=== PATIENT | male | born 1955 | race Caucasian/White ===

== ENCOUNTER → 2017-06-11 12:02 | Outpatient (CLI) | payer BC, SELFPAY ==
--- NOTE | 2017-06-11 12:14 | XR_ITS ---
XR knee LT 3V HISTORY: ITS.REASON: LEFT KNEE PAIN ORDERING PHYSICIAN: Araceli Benitez PATIENT AGE: 62 years COMPARISON: None FINDINGS: No fracture or dislocation. No lytic or blastic change. Normal mineralization. There is slight decrease in joint space medially with minimal osteophyte formation at the proximal tibia and proximal patella. IMPRESSION: Minimal osteoarthritic change
== END ==
PROVIDERS: PCP Family Medicine; Visit Provider Nurse Practitioner Family
DX: M25.562 Pain in left knee (principal)
CPT/HCPCS: 73562

== ENCOUNTER → 2017-09-03 13:06 | Outpatient (CLI) | payer BC, SELFPAY ==
--- NOTE | 2017-09-03 13:08 | MR_ITS ---
MR knee LT wo con HISTORY: Left knee pain, prior injury. Anterior pain and medial pain ITS.REASON: knee pain ORDERING PHYSICIAN: Filiberto Pisano MD PATIENT AGE: 62 years Comparison: 06/11/2017 TECHNIQUE: Standard multiplanar multiecho sequences are performed without contrast. FINDINGS: The cruciate ligaments, collateral ligaments, patellar tendon, and quadriceps tendon appear intact. Patellar cartilage is well preserved. There is some grade 1 increased signal intensity within the posterior margin of the medial meniscus. A nondisplaced horizontal tear involves the posterior horn of the lateral meniscus. There is a medium-sized knee joint effusion mainly in the suprapatellar region medially. There is increased T2 signal involving the medial femoral condyle and the medial tibial plateau consistent with bone bruise. Minor osteoarthritic changes involve the medial compartment with some medial protrusion of the medial meniscus and decrease in joint space. IMPRESSION: 1. Horizontal tear involves posterior horn of lateral meniscus. 2. Bone bruise of the medial femoral condyle and medial tibial plateau. 3. Mild osteoarthritis with medium sized knee joint effusion
== END ==
PROVIDERS: PCP Family Medicine; Visit Provider Orthopaedic Surgery
DX: S83.8X2A Sprain of other specified parts of left knee, initial encounter (principal)
CPT/HCPCS: 73721

== ENCOUNTER → 2017-10-06 10:09 | Outpatient (CLI) | payer BC, SELFPAY ==
--- NOTE | 2017-10-06 10:29 | XR_ITS ---
XR chest 2V HISTORY: ITS.REASON: DM2,PREOP ORDERING PHYSICIAN: Filiberto Pisano MD PATIENT AGE: 62 years COMPARISON: PA and lateral chest 10/01/2016 FINDINGS: There is mild generalized cardio megaly which is stable. The lung wetzel are well expanded and appear clear of infiltrate. There is no pleural fluid. IMPRESSION: Mild generalized cardio megaly, no acute chest pathology noted
[2017-10-06 10:43] LABS: Basophils # 0.1 K/mm3 (0-0.2); Basophils % 0.8 % (0.1-2.0); Eosinophils # 1.2 K/mm3 (0.0-0.4); Eosinophils % 12.7 % (0.1-12.0); Hemoglobin 14.6 g/dL (14.1-18.0); Lymphocytes # 2.6 K/mm3 (0.7-4.5); Lymphocytes % 27.4 K/mm3 (10-50); Mean Corpuscular HGB Conc 31.6 g/dL (31.8-35.4); Mean Corpuscular Hemoglobin 26.3 pg (27.0-31.2); Mean Corpuscular Volume 83.3 fl (80-94); Mean Platelet Volume 6.9 fl (7.4-10.4); Monocytes # 0.6 K/mm3 (0.1-1.0); Monocytes % 6.2 % (1.7-9.3); Neutrophils % 52.9 % (37.0-80.0); Platelet Count 325 K/mm3 (142-424); Red Blood Count 5.52 M/mm3 (4.60-6.20); Red Cell Distribution Width 13.7 % (11.5-17.5); White Blood Count 9.4 K/mm3 (4.8-10.8)
[2017-10-06 11:48] LABS: Anion Gap 12.3 mEq/L (5-15); Blood Urea Nitrogen 14 mg/dL (7-18); Calcium 9.1 mg/dL (8.5-10.1); Carbon Dioxide 29 mmol/L (21.0-32.0); Chloride 102 mmol/L (98-107); Creatinine,Serum 0.87 mg/dL (0.70-1.30); Estimated Glomerular Filt Rate 89 ml/min (>60); GFR (African American) 107 ML/MIN (>60); Glucose 100 mg/dL (74-106); Potassium 4.3 mmoL/L (3.5-5.1); Sodium 139 mmol/L (136-145)
== END ==
PROVIDERS: Visit Provider Orthopaedic Surgery
DX: Z01.818 Encounter for other preprocedural examination (principal); S83.282A Other tear of lateral meniscus, current injury, left knee, initial encounter
CPT/HCPCS: 36415; 71046; 80048; 85025; 93005

== ENCOUNTER → 2018-01-29 14:23 | Outpatient (CLI) | payer BC, SELFPAY ==
--- NOTE | 2018-01-29 14:26 | XR_ITS ---
XR knee LT 4V HISTORY: Knee pain ITS.REASON: 4 views weightbearing ORDERING PHYSICIAN: Evin Shukla MD PATIENT AGE: 62 years COMPARISON: 10/07/2017 FINDINGS: Status post subchondroplasty of the medial femoral condyle and medial tibial plateau with increased density of the structures. There is a lucency noted along the distal femur and one along the proximal aspect of the medial tibia centrally consistent with trocar insertion sites for subchondral plasty. No fracture or dislocation. Faint curvilinear density noted along the medial femoral condyle may be related to this extravasation of bone cement. There are moderate osteoarthritic changes of the medial compartment and mild osteoarthritis of the patellofemoral joint. The joint space medially appears more narrowed on today's exam. There is a suprapatellar effusion. IMPRESSION: Osteoarthritis of the medial compartment status post subchondral plasty is slight worsening of the osteoarthritis of the medial compartment and with a suprapatellar effusion
== END ==
PROVIDERS: PCP Family Medicine; Visit Provider Orthopaedic Surgery
DX: M25.562 Pain in left knee (principal)
CPT/HCPCS: 73564

== ENCOUNTER → 2018-05-14 14:09 | Outpatient (CLI) | payer BC, SELFPAY ==
[2018-05-14 14:14] LABS: Microscopic, Urine URINE MICROSCOPIC (MICROSCOPIC)
--- NOTE | 2018-05-14 14:38 | XR_ITS ---
XR knee LT 4V HISTORY: ITS.REASON: pre-op, lt KNEE OSTEOARTHRITIS ORDERING PHYSICIAN: Evin Shukla MD PATIENT AGE: 63 years COMPARISON: 01/29/2018 FINDINGS: Weight bearing views are performed. There are severe osteoarthritic changes of the medial compartment with loss of joint space, osteosclerosis, and osteophyte formation. There is increased density of the medial femoral condyle and the medial aspect of the proximal tibia with a lucency noted in both of these structures consistent with post subchondral blastic changes. There are mild osteoarthritic changes of the patellofemoral joint. There is a small suprapatellar effusion. There does appear to be some collapse of the medial femoral condyle at the subarticular region. IMPRESSION: Worsening osteoarthritis of the medial compartment status post prior subchondral plasty with some minimal collapse of the articular surface of the medial femoral condyle
--- NOTE | 2018-05-14 14:45 | XR_ITS ---
XR chest 2V HISTORY: ITS.REASON: DIABETIC, CAD ORDERING PHYSICIAN: Evin Shukla MD PATIENT AGE: 63 years COMPARISON: None FINDINGS: There is mild cardiomegaly. No evidence of CHF. No lobar consolidation or collapse. No acute bony anomalies. IMPRESSION: Cardiomegaly otherwise negative no acute finding
[2018-05-14 16:48] LABS: Appearance,Urine CLEAR (Clear); Bilirubin,Urine Negative (Negative); Blood, Urine TRACE-I (Negative); Color,Urine YELLOW (Yellow); Glucose,Urine (UA) Negative (Negative); Ketones,Urine Negative (Negative); Leukocyte Esterase,Urine Negative (Negative); Nitrate,Urine Negative (Negative); Protein,Urine Negative (Negative); Specific Gravity, Urine >= 1.030 (1.005-1.030); Urobilinogen,Urine 0.2 EU/dl (0.2)
[2018-05-14 17:01] LABS: Bacteria,Urine Trace /lpf; RBC,Urine Occasional #/hpf (0-3); WBC,Urine Occasional #/hpf (0-3)
== END ==
PROVIDERS: Visit Provider Orthopaedic Surgery
DX: Z01.818 Encounter for other preprocedural examination (principal); M17.12 Unilateral primary osteoarthritis, left knee
CPT/HCPCS: 36415; 71046; 73564; 81001; 86850

== ENCOUNTER → 2018-05-25 14:29 | Outpatient (CLI) | payer BC, SELFPAY ==
--- NOTE | 2018-05-25 14:35 | XR_ITS ---
XR hand RT min 3V HISTORY: Pain following injury ITS.REASON: FALL ORDERING PHYSICIAN: Mary Lutz MD PATIENT AGE: 63 years COMPARISON: None FINDINGS: No fracture or dislocation. No lytic or blastic change. There is normal mineralization.. There are mild hypertrophic changes at the interphalangeal joint of the first digit and the DIP joint of second and third digits. A small calcific density is present along the anterior and distal aspect of the proximal phalanx of the second digit. IMPRESSION: Degenerative change, no acute finding.
== END ==
PROVIDERS: PCP Family Medicine; Visit Provider Emergency Medicine
DX: M79.641 Pain in right hand (principal); W19.XXXA Unspecified fall, initial encounter
CPT/HCPCS: 73130

== ENCOUNTER 2018-05-27 06:54 | Inpatient (IN) ==
--- NOTE | 2018-05-27 08:32 | Progress Note ---
[facility] Anesthesia Checklist - Structural Data Admitted From: Home Planned Operative Procedure/s: l tka Consent for Planned Operative Procedure(s) Verified: Yes - Airway Assessment C-Spine Mobility Assessed: Yes TMJ Mobility Assessed: Yes Dentition: Good Dentition - Neurological Assessment Level of Consciousness: Awake, Alert, Appropriate - Anesthesia Plan Anesthesia Risk discussed: Yes Anesthesia Plan: Verified ASA Class: II Anesthesia Type: General - Preoperative Comments Pre-Operative Comments: discussed fem/sciatic block w pt incl risks and benefits, pt agrees to proceed w block [facility] History I have reviewed the patient's past medical history: Yes Medical History: Reports:: Anxiety, Diabetes Mellitus Type 2, Hyperlipidemia Denies:: Cancer, Diabetes Mellitus Type 1, Internal Pacemaker, MRSA, Seizures Have you ever received a pneumonia vaccine?: No Have you received a flu vaccine this season?: Yes Other Medical History: Denies: Blood Transfusion Reaction Laterality Cases: Left: Arthroscopy Knee Other Surgeries: Yes: Cardiac Catheterization, Hernia Repair. No: Pacemaker Amputation: No Fractures: No - *Social History Educational Level: Completed High School Smoking Status: Never smoker Alcohol Intake: never Substance Use Type: denies use Occupational Status: employed Housing: house Household Members: spouse Travel in the last 8 weeks: None - Psychiatric History Expresses thoughts of harming self/others: None Suicide Plan Description: No Plan Pschychiatric History:: Reports:: Anxiety Family Hx:: Cancer, Coronary Artery Disease, Heart Attack
--- NOTE | 2018-05-27 13:02 | Progress Note ---
[facility] Anesthesia Record Part II Discharge Time: 13:30 Destination: floor PACU nurse assessment reviewed?: Yes Patient Condition:: Good Anesthesia Complications:: None Swallowing reflex intact?: Yes Cyanosis?: No
--- NOTE | 2018-05-27 13:02 | Progress Note ---
[facility] Anesthesia Record Part I Intake, IV Amount: 2,500 Estimated blood loss (mL): 50 Urine output (mL): 450 Blood Pressure: 129/85 SaO2: 97 Pulse Rate: 107 Respiratory Rate: 12 Temperature: 97.4 F Patient is:: Awake, Stable Stable to PACU at:: 13:00
--- NOTE | 2018-05-27 13:39 | Operative Note ---
Date of procedure: 05/27/18 Pre-op Diagnosis:: Degenerative joint disease, left knee Post-op Diagnosis:: Same Procedure performed:: Cemented total knee arthroplasty, left knee Surgeon:: Evin Shukla MD Oil Changer(s):: Tiny Davis DIRECTOR OF MARKET INTELLIGENCE:: Joaquín Hernandez Anesthesia: GETA, regional Estimated blood loss (mL): 50 Clinical Note:: Patient is a 62-year-old male with symptomatic degenerative arthritis of the left knee with more significant changes over the medial compartment. He underwent an arthroscopic partial lateral meniscectomy and sub-chondroplasty procedure the medial femoral condyle and medial tibial plateau by Dr. Pisano in September 2017. He initially got some relief following his surgery but subsequently developed knee pain a few weeks to a couple of months later. He reports continued knee pain mainly over the anterior and medial aspects of the knee. He had intra-articular steroid and Visco supplementation injections without any significant or lasting relief. He rates his pain a 3 out of 10 at rest which gets worse with standing, walking and bending the knee. He also reports significant pain and difficulty going downstairs. He is having difficulty with his work and is not able to cope adequately with even light duties at work. He has developed a progressive varus deformity and flexion contracture with continued significant right knee pain. Having failed to respond satisfactorily to extensive nonsurgical management as well as arthroscopic surgery, patient is keen to proceed with a total knee arthroplasty for his left knee. The pain is advanced to the point that it is becoming a hazard for the patient with risk of falling and injuring himself. His activities of daily living as well as work are significantly impacted with the knee pain and stiffness. He also reports night pain and sleep disturbance. Given his knee pain and limitation of mobility, he is also at risk of falls and injuring himself. A total knee arthroplasty is indicated to relieve the pain, improve function, and reduce the risk of falls and to improve quality of life. Please refer to the office note for full details. Operative findings:: As noted during the preoperative evaluation, the knee joint has a fixed flexion of 10 and fixed varus deformity of 5. As seen on the preoperative x-rays, there are tricompartmental degenerative changes with the medial compartment showing more advanced changes with [id number]-wwgl appearance and osteophyte formation. The menisci and cruciate ligaments were degenerate. Scarring from previous arthroscopic surgery was noted. Changes over from the previous sub- chondroplasty procedure noted over the medial femoral condyle and medial tibial plateau. Distal aspect of the medial femoral condyle in particular showed changes suggestive of avascular necrosis and cyst formation. Bone quality is otherwise good. Operative note:: On the day of the surgery the patient and his family were met in the preoperative area and the patient was positively identified. I have reviewed the clinical and x-ray findings with the patient. I again discussed the diagnosis, natural history and management options in detail including both nonsurgical and surgical. Patient has end-stage degenerative arthritis of the LEFT knee and has failed to respond satisfactorily to nonsurgical and surgical management so far and has opted to proceed with a LEFT total knee arthroplasty. We again discussed the details of the procedure, risks and benefits and alternatives in detail. The complications discussed include but are not limited to infection, injury to nerves and blood vessels including injury to popliteal artery, injury to tendons and ligaments, bleeding, DVT and PE, fat embolism, intraoperative fracture, limb length inequality, patella fracture, patellofemoral instability, patellar clunk syndrome, quadriceps and patellar tendon rupture, implant failure, component loosening, periprosthetic femur and tibia fractures, stiffness(arthrofibrosis), limp, incomplete relief of pain, incomplete functional recovery, likely need for further surgery in future including revision and anesthetic complications including heart attack, stroke and even . We discussed how any of these events can be devastating. We have discussed nonsurgical alternatives as well. Patient understands and wishes to proceed with a LEFT total knee arthroplasty and I believe that the patient is fully informed as to the risks, benefits, and alternatives including nonsurgical alternatives. We also discussed the postoperative course including the rehab and physical therapy required. Patient lives with his family and is planning to go back home with home health after surgery. A physical examination was performed and documented. Consent form was reviewed and signed. The limb was appropriately marked and initialed by me. Patient understood the risks, agreed to proceed with surgery, [signed the consent form] and no guarantees or assurances were given or implied. The patient was then brought to the operating room and a general anesthesia was administered by the coding consultant. Prior to that patient also received femoral and sciatic nerve blocks in the pre-anesthetic area. The patient was then positioned supine on the operating table. All the bony prominences were appropriately padded. A well-padded tourniquet cuff was placed high over the left upper thigh. The left knee was prepped with isopropyl alcohol followed by chlorhexidine and draped in the usual sterile fashion. Prior to this, patient had used Hibiclens for a total of 5 days prior to the surgery and also used topical intranasal mupirocin. The entire operative team wore isolation suits and the Operating Room traffic was controlled. The skin incision was marked for a medial parapatellar approach to the knee joint. The entire operative site was sealed off with Ioban drape. A preprocedure timeout was performed as per hospital protocol. At the start of the procedure administration of 2 g of prophylactic IV Ancef was confirmed with the anesthetic team. Patient also received 1 g of IV tranexamic acid before starting the procedure and one more gram before wound closure to reduce the postoperative blood loss. The limb was exsanguinated with Esmarch bandage, the knee joint flexed beyond 90 and the tourniquet cuff was inflated to 325 mmHg. Please see the nursing records for total tourniquet time. I then made a midline incision utilizing a #10 scalpel blade. Electrocautery was used to seal off subcutaneous vessels. The extensor mechanism was exposed, marked and a curvilinear incision made for a medial parapatellar approach using the scalpel blade. The patella was everted carefully and most of the fat pad resected to allow sufficient visualization of the proximal tibia. The anterior cruciate ligament and the anterior aspects of both menisci were resected. An appropriate medial release was performed with the knife and Roger elevator. A step drill was used to open the intramedullary canal and the IM distal femoral cutting jig was placed. The jig was pinned into position and the intramedullary jocelyn removed. The distal cut was made at 5 degrees of valgus and the sizing jig placed. This sized best at a size 6 femur for the [employer] Journey II BCS TKA system. We then placed the 5-in-1 cutting block in position in 3 degrees of external rotation. 2 threaded pins were added for stabilizing the block and the juliana wing utilized to ensure notching of the femur would not occur. The anterior cuts were made followed by the posterior cut then the posterior chamfer and finally the anterior chamfer cuts in that order. Soft tissues were protected throughout this with careful retraction using the Z retractors. We checked for trueness of cuts and then moved on to the tibia. The tibial extra medullary guide was placed and aligned from the central aspect of the plateau between the spines down to the second metatarsal base. We pinned cutting block in position for minimal resection of the tibia from the medial side which was the lowermost side, checked the a lignment, protected the soft tissues with appropriate retractors and resected with the Cas saw. The resected tibial plateau articular surface was removed and sized it at a size 6. We ensured correctness of the cut and correct posterior slope. We then checked the extension and flexion gaps and found them to be equal and well balanced. We then elected to proceed with the box cut for a posterior stabilized femoral component. We placed the femoral trial appropriately and secured it to the bone with threaded pins. We placed the cutting jig for the box cut in the femur, drilled and then used the box osteotome to create the channel. We trialed the femur and the tibia with the appropriate trial components and a trial insert and ranged the knee to ensure full flexion and extension and checked for ligamentous stability. We then everted the patella and reamed for a 29 mm central pegged button. We had lateralized the femur and medialized the patella intentionally. We placed trial components and noted that a 11mm thick polyethylene tibial insert to fit best. This gave us a ligamentously stable knee and allowed full extension. We allowed this to be free-floating and then checked it and made sure it was in appropriate position in relation to the tibial tubercle. We also used tibial alignment jocelyn to check for satisfactory position of the base plate and markings were made with electrocautery on the proximal tibia. We then removed the trial components and positioned and pinned the base plate to the top of the tibia and punched the groove for the V shaped stem. We used a small trocar tipped pin to drill holes into the subchondral sclerotic bone of the medial tibia to augment cement fixation. We have noticed some bone necrosis and cyst formation over the distal aspect of the medial femoral condyle. I have curetted out the cysts and filled the cavity with cancellous bone graft. I then impacted the graft firmly into place. I also placed corticocancellous bone block in to the femoral entry point to reduce postoperative bleeding. We then copiously irrigated with the normal saline pulse lavage, and then dried the cut surfaces. We then cemented the tibial tray, the femoral component, and placed a 11 mm trial insert and brought the knee into extension. We then cemented the patella button. We allowed the cement to set and then inspected the knee joint and removed excess cement with an osteotome. We then placed the 11 millimeters definitive polyethylene tibial insert ensuring that the dovetails fit appropriately and that the polyethylene was down and seated into the tibial tray properly. The knee joint was put through range of motion and noted the patella to be tracking appropriately with no thumb technique. Knee range of flexion noted to be 0-150. The knee joint was then soaked with dilute Betadine (0.35 percent) solution for 3 minutes followed by suctioning of the solution and pulsatile lavage with the 1 L of normal saline. The tourniquet was deflated and hemostasis obtained with diathermy cautery. Another 1 gram of tranexamic acid was given intravenously by the coding consultant at the time of deflating the tourniquet. The knee joint was again thoroughly irrigated with pulse lavage and good hemostasis was obtained with diathermy cautery. At this stage, I have decided to proceed with placement of antibiotic beads as patient had previous knee surgery and also had intra- articular steroid injections. The antibiotic beads were prepared on the back table by mixing 5 cc of Osteo-boost with 1 g of vancomycin and 120 mg of gentamicin. We placed the beads around the knee joint as well as in the soft tissue in both deep and superficial layers. I then proceeding with wound closure. The capsule/extensor mechanism was closed with #1 Vicryl [id number] interrupted sutures ensuring a watertight closure. Next, the subcutaneous tissue was closed with 2-0 Vicryl interrupted sutures. The skin was closed with 4-0 Monocryl running suture, Dermabond and Steri-Strips. Sterile dressings were applied consisting of Silverlon dressing, 4 x 4, soft roll and secured in place with Hu wrap. The patient was then transferred from the operating table onto the bed. The tibialis posterior and dorsalis pedis pulses were noted 2+ with good capillary refill in the foot. The patient was then reversed from the anesthetic and transported to the postoperative recovery area in a stable condition. Patient tolerated the procedure well and there were no immediate complications. The swab, needle and instrument counts were correct according to the scrub team at the end of the procedure. Portable x-rays of the left knee were obtained in the recovery area which showed the components to be well fixed in a satisfactory alignment and position without any complications. The knee was placed in a knee immobilizer which should be continued when standing and walking, until patient regains full quadriceps control. Postoperatively, institute and continue standard precautions and physical therapy and edema management for a standard primary total knee arthroplasty starting on postoperative day 1. Patient can be mobilized full weightbearing as tolerated. Implants: [employer] Journey II BCS TKA system [employer] Journey nonporous tibial baseplate-left, size 6 [employer] bicruciate stabilized Journey II BCS Oxinium femoral component- left, size 6 [employer] Journey II BCS XLPE articular insert-left, size 5-6 x 11 mm [employer] Journey BCS Biconvex patellar component- 29mm [employer] Versabond AB bone cement Industry technology sales representative: Donald Silva ([employer]) Condition: stable Disposition: PACU Specimens:: None Complications:: None
--- NOTE | 2018-05-27 15:05 | Progress Note ---
Subjective Date: 05/27/18 Time: 14:45 Principal diagnosis: Status post total knee arthroplasty, left Interval history: Patient is status post left knee arthroplasty earlier today. Patient is lying down on the bed. He says the nerve blocks did not work well and is reporting some pain. No history of any nausea or vomiting. No history of any cough, chest pain, shortness of breath or palpitations. PN: Obj Ex Vital signs: Temp Pulse Resp BP Pulse Ox 98.2 F 106 H 20 137/83 99 05/27/18 14:01 05/27/18 14:01 05/27/18 14:01 05/27/18 14:01 05/27/18 14:01 Narrative: General appearance: alert, active, awake Cardiovascular: regular rate & rhythm, normal peripheral pulses Respiratory: No respiratory distress noted, speaks in full sentences ABD: soft and non tender Neuro: alert, awake, oriented x 3 On examination of the lower extremities the limb lengths are equal. On examination of the left knee the dressings are clean, dry and intact. Leg compartments are soft. Distal pulses are 2+. Capillary refill is brisk. He has numbness over her left foot and ankle. He is actively moving the ankle, foot and the toes. Postoperative check x-ray reviewed along with radiologist report. The x-rays show left total knee arthroplasty in satisfactory alignment. No complications noted. - Urinary Catheter Management Coude Cath placed during this visit: yes Urethral indwelling: Yes Reason for continuing: Surgical procedure Insertion date: 05/27/18 Insertion time: 08:50 Progress Note: A&P Assessment and Plan for All Diagnoses:: I have reviewed the clinical and operative findings and procedure performed with the patient and his . Advised him to keep the leg elevated, avoid placing pillow behind the knee; use knee immobilizer when weightbearing and walking until he regains full quadriceps control and is able to actively straight leg raise. Continue DVT prophylaxis and as needed pain medication. Care management consult regarding discharge planning. Patient is keen to go home with home health/physical therapy. Medical management as per Dr. Howell.
--- NOTE | 2018-05-27 15:23 | Pharmacy Consult Notes ---
[facility] Pharmacy VTE Monitoring - Patient Demographics Admission date: 05/27/18 Report Date: 05/27/18 Time: 15:21 Allergies/Adverse Reactions: Patient Allergies Penicillins [PENICILLINS] Allergy (Unknown, Verified 05/27/18 07:16) Height: 155.45 m Weight: 92.986 kg - VTE Risk Was VTE Risk Assessment Performed: Yes VTE Score: 7 VTE Risk Level: Moderate Risk - Prophylaxis Types of VTE Prophylaxis: IPCS Knee High (POST OP) Location of Applied Device: Right Leg
[2018-05-28 07:46] LABS: Basophils % 0.1 % (0.1-2.0); Hematocrit 30.6 % (42.0-52.0); Hemoglobin 9.9 g/dL (14.1-18.0); Lymphocytes # 1.2 K/mm3 (0.7-4.5); Lymphocytes % 10.1 % (10-50); Mean Corpuscular HGB Conc 32.4 g/dL (31.8-35.4); Mean Corpuscular Hemoglobin 26.6 pg (27.0-31.2); Mean Platelet Volume 6.6 fl (7.4-10.4); Monocytes # 0.9 K/mm3 (0.1-1.0); Monocytes % 7.9 % (1.7-9.3); Neutrophils # 9.8 K/mm3 (1.8-7.8); Neutrophils % 81.9 % (37.0-80.0); Platelet Count 275 K/mm3 (142-424); Red Blood Count 3.73 M/mm3 (4.60-6.20)
[2018-05-28 08:01] LABS: Anion Gap 10.9 mEq/L (5-15); Calcium 8.6 mg/dL (8.5-10.1); Potassium 3.9 mmoL/L (3.5-5.1)
--- NOTE | 2018-05-28 14:57 | Progress Note ---
Internal Medicine - PN: Subj Interval history: FAMILY MEDICINE CONSULT This 63-year-old white male patient is well-known to Dr. Howell. He is admitted by Dr. Shukla for replacement of his left knee. He has had difficulty with the Knee for at least at least 6 years. He has had previous steroid injections and hyaluronic acid injections. He is postop from surgery from yesterday morning. The patient's problem list includes hypothyroidism for which he takes levothyroxine, hyperlipidemia for which he takes rosuvastatin, and diabetes mellitus type 2 for which he takes metformin. He has had a cardiac catheterization in the past with the finding of a myocardial bridge. He does not have a stent. When the patient is seen today in consult he complains of chest fullness after eating. He is knee pain is being treated with opioids. His only listed allergy is to penicillin. Exam Vital signs and Labs for Last 24 Hours: Temp Pulse Resp BP Pulse Ox 98.2 F 89 20 122/77 96 05/28/18 11:32 05/28/18 11:32 05/28/18 13:45 05/28/18 11:32 05/28/18 11:32 Laboratory Results - last 24 hr 05/27/18 08:50: Urine Color Yellow, Urine Appearance Clear, Urine pH 6.0, Ur Specific [place] >= 1.030, Urine Protein Negative, Urine Glucose (UA) Negative, Urine Ketones Negative, Urine Blood Negative, Urine Nitrate Negative, Urine Bilirubin Negative, Urine Urobilinogen 0.2, Ur Leukocyte Esterase Negative 05/28/18 07:11: WBC 12.0 H, RBC 3.73 L, Hgb 9.9 L, Hct 30.6 L, MCV 82.0, MCH 26.6 L, MCHC 32.4, RDW 14.0, Plt Count 275, MPV 6.6 L, Neut % (Auto) 81.9 H, Lymph % (Auto) 10.1, [place] % (Auto) 7.9, Eos % (Auto) 0.0 L, Baso % (Auto) 0.1, Neut # (Auto) 9.8 H, Lymph # (Auto) 1.2, [place] # (Auto) 0.9, Eos # (Auto) 0.0, Baso # (Auto) 0.0 05/28/18 07:11: Sodium 138, Potassium 3.9, Chloride 105, Carbon Dioxide 26, An ion Gap 10.9, BUN 14, Creatinine 1.08, Estimated Creat Clear 91, Estimated GFR 69, Est GFR ( Amer) 83, Glucose 120 H, Calcium 8.6 I & O for Last 24 hours: Intake & Output 05/26/18 05/27/18 05/28/18 05/29/18 11:59 11:59 11:59 11:59 Intake Total 3220 / 3220 1909 Output Total 1400 / 1400 Balance 1820 / 1821909 Weight 208 lb 204 lb 15.984 oz - Constitutional no acute distress Comments: Does complain of some chest fullness. - *Routine HEENT Exam Head: Present: normocephalic Eye: Present: PERRL ENT: Present: mucous membranes moist - *Routine Neck Exam Absent: carotid bruit - Routine Chest/Breast/Axilla Exam Comments: Normal configuration - *Routine Respiratory Exam Present: CTA bilaterally - *Routine Cardiovascular Exam Present: RRR Comments: No ectopics - *Routine Abdominal Exam Present: soft. Absent: tenderness - *Routine Extremities Exam Comments: Flowtron device on the right leg. The left leg is bandaged. There is some edema of the lower leg ankle and foot. There is normal range of motion of the toes. Circulation appears normal and intact. The toes are warm. - *Routine Skin Exam Present: intact, dry - *Routine Neurological Exam Present: alert, oriented X3 Assessment and Plan (1) Degenerative joint disease of left knee Current visit: Yes Status: Acute Category: Medical Code(s): M17.12 - Unilateral primary osteoarthritis, left knee (2) Hypothyroidism Current visit: Yes Status: Acute Category: Medical Code(s): E03.9 - Hypothyroidism, unspecified (3) Myocardial bridge Current visit: Yes Status: Acute Category: Medical Code(s): Q24.5 - Malformation of coronary vessels (4) Hyperlipidemia Current visit: Yes Status: Acute Category: Medical Code(s): E78.5 - Hyperlipidemia, unspecified (5) Type 2 diabetes mellitus Current visit: Yes Status: Acute Category: Medical Code(s): E11.9 - Type 2 diabetes mellitus without complications (6) Chest pain Current visit: Yes Status: Acute Category: Medical Code(s): R07.9 - Chest pain, unspecified - Assessment and plan all Dx Assessment and Plan for all problems:: EKG and cardiac enzymes are ordered. Routine medications have already been ordered. I suggest cardiac telemetry. He seems very stable otherwise. I will follow him with you. Addendum: Sorry for the delay in this consult. I did not receive word of the consult until last night around 10 PM.
--- NOTE | 2018-05-28 15:08 | Progress Note ---
Subjective Date: 05/28/18 Time: 12:45 Principal diagnosis: Status post total knee arthroplasty, left Interval history: Patient is status post left knee arthroplasty, postoperative day 1. Patient is lying down on the bed. He says he is doing well and the pain is well controlled with medication. No history of any nausea or vomiting. No history of any cough, chest pain, shortness of breath or palpitations. Patient says he is eating and drinking well. PN: Obj Ex Vital signs: Temp Pulse Resp BP Pulse Ox 98.2 F 89 16 122/77 96 05/28/18 11:32 05/28/18 11:32 05/28/18 11:32 05/28/18 11:32 05/28/18 11:32 Narrative: Laboratory Results - last 24 hr 05/28/18 07:11: WBC 12.0 H, RBC 3.73 L, Hgb 9.9 L, Hct 30.6 L, MCV 82.0, MCH 26.6 L, MCHC 32.4, RDW 14.0, Plt Count 275, MPV 6.6 L, Neut % (Auto) 81.9 H, Lymph % (Auto) 10.1, [place] % (Auto) 7.9, Eos % (Auto) 0.0 L, Baso % (Auto) 0.1, Neut # (Auto) 9.8 H, Lymph # (Auto) 1.2, [place] # (Auto) 0.9, Eos # (Auto) 0.0, Baso # (Auto) 0.0 05/28/18 07:11: Sodium 138, Potassium 3.9, Chloride 105, Carbon Dioxide 26, Anion Gap 10.9, BUN 14, Creatinine 1.08, Estimated Creat Clear 91, Estimated GFR 69, Est GFR ( Amer) 83, Glucose 120 H, Calcium 8.6 Intake & Output 05/26/18 05/27/18 05/28/18 05/29/18 11:59 11:59 11:59 11:59 Intake Total 3220 / 3220 1550 / 1550 Output Total 1400 / 1400 Balance 1820 / 1820 1550 / 1550 Weight 208 lb 204 lb 15.984 oz Exam: General appearance: alert, active, awake Cardiovascular: regular rate & rhythm, normal peripheral pulses Respiratory: No respiratory distress noted, speaks in full sentences ABD: soft and non tender Neuro: alert, awake, oriented x 3 On examination of the lower extremities the limb lengths are equal. On examination of the right knee the dressings are clean, dry and intact. Soft tissue compartments are soft and nontender. Distal pulses are 2+. Capillary refill is brisk. Sensation is intact light touch throughout. He is actively moving the ankle, foot and the toes. He is not able to actively straight leg raise. - Urinary Catheter Management Coude Cath placed during this visit: yes Urethral indwelling: Yes Reason for continuing: Surgical procedure Insertion date: 05/27/18 Insertion time: 08:50 Progress Note: A&P (1) History of total knee arthroplasty Status: Acute Current Visit: Yes (2) Degenerative joint disease of left knee Status: Acute Current Visit: Yes Assessment and Plan for All Diagnoses:: I have reviewed the clinical findings and progress with the patient. I have given him a paper copy of his postoperative x-rays. Advised him to avoid placing pillow behind the knee; use knee immobilizer when weightbearing and walking until he regains full quadriceps control and is able to actively straight leg raise. Patient was seen by PT today and started physical therapy and mobilization; continue standard protocol for a primary knee replacement. Continue DVT prophylaxis and as needed pain medication. I have ordered oral ferrous sulfate. Discontinue IV fluids as patient is eating and drinking well. The urinary catheter was removed earlier today. Care management consult regarding discharge planning. Medical management as per Dr. Howell.
[2018-05-28 15:31] LABS: Creatine Kinase 226 U/L (39-308)
--- NOTE | 2018-05-29 08:37 | Progress Note ---
Internal Medicine - PN: Subj *Date: 05/29/18 *Time: 08:34 Interval history: FAMILY MEDICINE CONSULT He did not sleep well last night. He is fairly uncomfortable. His hemoglobin is 9.9. He has more edema of the left leg he did yesterday. His lung fairly clear perhaps some bilateral basilar rales. He is receiving Xarelto. Exam Vital signs and Labs for Last 24 Hours: Temp Pulse Resp BP Pulse Ox 98.3 F 122 H 18 147/79 H 94 L 05/29/18 08:00 05/29/18 08:00 05/29/18 08:00 05/29/18 08:00 05/29/18 08:00 Laboratory Results - last 24 hr 05/27/18 08:50: Urine Color Yellow, Urine Appearance Clear, Urine pH 6.0, Ur Specific [place] >= 1.030, Urine Protein Negative, Urine Glucose (UA) Negative, Urine Ketones Negative, Urine Blood Negative, Urine Nitrate Negative, Urine Bilirubin Negative, Urine Urobilinogen 0.2, Ur Leukocyte Esterase Negative, Urine RBC None, Urine WBC Occasional, Ur Squamous Epith Cells None, Urine Bacteria Trace 05/28/18 15:05: Total Creatine Kinase 226, CK-MB (CK-2) 1.3, CK-MB (CK-2) Rel Index 0.6, Troponin I < 0.02 I & O for Last 24 hours: Intake & Output 05/26/18 05/27/18 05/28/18 05/29/18 11:59 11:59 11:59 11:59 Intake Total 3220 / 3220 2700 / 2700 Output Total 1400 / 1400 500 / 500 Balance 1820 / 1820 2200 / 2200 Weight 208 lb 204 lb 15.984 oz - Constitutional no acute distress - *Routine HEENT Exam Head: Present: normocephalic ENT: Present: mucous membranes moist - *Routine Respiratory Exam Comments: Good air movement. Few bibasilar rales. - *Routine Cardiovascular Exam Present: RRR Comments: EKG was normal yesterday as well as cardiac enzymes. - *Routine Abdominal Exam Present: soft. Absent: tenderness - *Routine Extremities Exam Comments: Flowtron in place on the right leg. The left leg looks more edematous and the foot looks edematous. Normal range of motion of the toes. Assessment and Plan (1) History of total knee arthroplasty Current visit: Yes Status: Acute Category: Surgical Code(s): Z96.659 - Presence of unspecified artificial knee joint (2) Degenerative joint disease of left knee Current visit: Yes Status: Acute Category: Medical Code(s): M17.12 - Unilateral primary osteoarthritis, left knee - Assessment and plan all Dx Assessment and Plan for all problems:: Follow weight. He is saline locked.
[2018-05-29 08:58] LABS: Basophils # 0.1 K/mm3 (0-0.2); Basophils % 0.6 % (0.1-2.0); Eosinophils # 0.2 K/mm3 (0.0-0.4); Eosinophils % 2.4 % (0.1-12.0); Hematocrit 27.7 % (42.0-52.0); Hemoglobin 9.1 g/dL (14.1-18.0); Lymphocytes # 2.1 K/mm3 (0.7-4.5); Lymphocytes % 28.1 % (10-50); Mean Corpuscular HGB Conc 32.9 g/dL (31.8-35.4); Mean Corpuscular Hemoglobin 26.8 pg (27.0-31.2); Mean Corpuscular Volume 81.3 fl (80-94); Mean Platelet Volume 6.7 fl (7.4-10.4); Monocytes # 0.4 K/mm3 (0.1-1.0); Monocytes % 5.2 % (1.7-9.3); Neutrophils # 4.9 K/mm3 (1.8-7.8); Neutrophils % 63.7 % (37.0-80.0); Platelet Count 255 K/mm3 (142-424); White Blood Count 7.6 K/mm3 (4.8-10.8)
[2018-05-29 09:06] LABS: Anion Gap 13.3 mEq/L (5-15); Calcium 8.3 mg/dL (8.5-10.1); Potassium 3.3 mmoL/L (3.5-5.1)
--- NOTE | 2018-05-29 15:21 | Progress Note ---
Subjective Date: 05/29/18 Time: 13:30 Principal diagnosis: Status post total knee arthroplasty, left Interval history: Patient is status post left knee arthroplasty, postoperative day 2. Patient is lying down on the bed. He says he is doing well and the pain is well controlled with medication. No history of any nausea or vomiting. No history of any cough, chest pain, shortness of breath or palpitations. Patient says he is eating and drinking well. He is mobilizing well with physical therapy. PN: Obj Ex Vital signs: Temp Pulse Resp BP Pulse Ox 98.6 F 101 H 18 159/96 H 94 L 05/29/18 12:00 05/29/18 12:00 05/29/18 12:00 05/29/18 12:00 05/29/18 12:00 Narrative: Intake & Output 05/27/18 05/28/18 05/29/18 05/30/18 11:59 11:59 11:59 11:59 Intake Total 3220 / 3220 2700 / 2700 Output Total 1400 / 1400 500 / 500 Balance 1820 / 1820 2200 / 2200 Weight 208 lb 204 lb 15.984 oz Laboratory Results - last 24 hr 05/28/18 15:05: Total Creatine Kinase 226, CK-MB (CK-2) 1.3, CK-MB (CK-2) Rel Index 0.6, Troponin I < 0.02 05/29/18 08:48: WBC 7.6 D, RBC 3.40 L, Hgb 9.1 L, Hct 27.7 L, MCV 81.3, MCH 26.8 L, MCHC 32.9, RDW 14.0, Plt Count 255, MPV 6.7 L, Neut % (Auto) 63.7, Lymph % (Auto) 28.1, [place] % (Auto) 5.2, Eos % (Auto) 2.4, Baso % (Auto) 0.6, Neut # (Auto) 4.9, Lymph # (Auto) 2.1, [place] # (Auto) 0.4, Eos # (Auto) 0.2, Baso # (Auto) 0.1 05/29/18 08:48: Sodium 138, Potassium 3.3 L, Chloride 103, Carbon Dioxide 25, Anion Gap 13.3, BUN 13, Creatinine 1.17, Estimated Creat Clear 84, Estimated GFR 63, Est GFR ( Amer) 76, Glucose 193 H, Calcium 8.3 L 05/29/18 08:48: TSH 2.85 05/29/18 11:37: POC Glucose 80 Exam: General appearance: alert, active, awake Cardiovascular: Tachycardia, normal peripheral pulses Respiratory: No respiratory distress noted, speaks in full sentences ABD: soft and non tender Neuro: alert, awake, oriented x 3 On examination of the lower extremities the limb lengths are equal. On examination of the left knee the dressings are clean, dry and intact. I have changed the dressings today and the incision looks clean and healthy. No signs of infection or other complications noted. There is diffuse edema of the lower leg and foot and ankle. Soft tissue compartments are soft and nontender. Homans sign is negative. Distal pulses are 2+. Capillary refill is brisk. Sensation is intact to light touch throughout. He is actively moving the ankle, foot and the toes. He is still not able to actively straight leg raise. - Urinary Catheter Management Coude Cath placed during this visit: yes Urethral indwelling: Yes Reason for continuing: Surgical procedure Insertion date: 05/27/18 Insertion time: 08:50 Progress Note: A&P (1) History of total knee arthroplasty Status: Acute Current Visit: Yes (2) Degenerative joint disease of left knee Status: Acute Current Visit: Yes Assessment and Plan for All Diagnoses:: I have reviewed the clinical findings and progress with the patient. Advised him to avoid placing pillow behind the knee; use knee immobilizer when weightbearing and walking until he regains full quadriceps control and is able to actively s traight leg raise. Continue and advance physical therapy and mobilization; continue standard protocol for a primary knee replacement. Continue DVT prophylaxis and as needed pain medication. I have discussed about the patient with Dr. Howell who has recommended for possible discharge tomorrow. Continue medical management as per Dr. Howell.
--- NOTE | 2018-05-30 12:06 | Progress Note ---
Internal Medicine - PN: Subj *Date: 05/30/18 *Time: 12:03 Interval history: FAMILY MEDICINE CONSULT The patient is anxious for discharge. He seems stable enough though his potassium is 3.3 yesterday. I received no notification of this. He has had no corrective doses of potassium. This morning I have ordered 10 mEq orally now to be followed by 20 mEq at 1 PM p.o. I ordered a repeat potassium at 3 PM. He can probably be discharged today. I plan to see him in follow-up on Friday or . Dr. Shukla will arrange his follow-up. Exam Vital signs and Labs for Last 24 Hours: Temp Pulse Resp BP Pulse Ox 97.9 F 105 H 18 122/92 H 97 05/30/18 11:26 05/30/18 11:26 05/30/18 11:26 05/30/18 11:26 05/30/18 11:26 Laboratory Results - last 24 hr 05/29/18 19:58: POC Glucose 111 H I & O for Last 24 hours: Intake & Output 05/28/18 05/29/18 05/30/18 05/31/18 11:59 11:59 11:59 11:59 Intake Total 3220 / 3220 2700 / 2700 600 / 600 Output Total 1400 / 1400 500 / 500 2550 / 2550 Balance 1820 / 1820 2200 / 2200 -1950 / -1950 Weight 204 lb 15.984 oz - Constitutional no acute distress - *Routine HEENT Exam Head: Present: normocephalic Eye: Present: PERRL ENT: Present: mucous membranes moist - *Routine Respiratory Exam Present: CTA bilaterally - *Routine Cardiovascular Exam Present: RRR - *Routine Abdominal Exam Present: soft. Absent: tenderness - *Routine Extremities Exam Present: edema (1+ on the left leg. Circulation is good.) - *Routine Skin Exam Present: intact - *Routine Neurological Exam Present: alert, oriented X3 Assessment and Plan (1) History of total knee arthroplasty Current visit: Yes Status: Acute Category: Surgical Code(s): Z96.659 - Presence of unspecified artificial knee joint (2) Degenerative joint disease of left knee Current visit: Yes Status: Acute Category: Medical Code(s): M17.12 - Unilateral primary osteoarthritis, left knee - Assessment and plan all Dx Assessment and Plan for all problems:: Recheck potassium at 3 PM. If it is improved he can be discharged as far as I am concerned. I will see him in follow-up Friday or Friday in [facility] office. He will see Dr. Shukla in follow-up accordingly.
--- NOTE | 2018-05-30 13:41 | Discharge Summary ---
General - General Admission date:: 05/27/18 Discharge date: 05/30/18 HPI HPI: Patient is a 63-year-old male with degenerative joint disease of the left knee and failed conservative management was admitted electively following an uncomplicated primary left total knee replacement on 05/27/2018. He has not responded well to conservative management including NSAID, Tylenol, and intra- articular injections and arthroscopic surgery in the past. Total knee arthroplasty is indicated to reduce the risk of falls, improve her pain and mobility and quality of life. The surgical and nonsurgical alternatives were discussed in detail with the patient as well as the risks and benefits of the surgery. He has a history of hypothyroidism, diabetes, hyperlipidemia, myocardial bridge and osteoarthritis. Hospital Course Hospital Course: Patient underwent an uncomplicated primary left total knee arthroplasty on 05/27/2018. Following surgery patient progressed well without any complications. His postoperative check x-ray was satisfactory with good alignment and fixation of the components. Patient progressed rapidly with physical therapy and was able to mobilize using a walker. At the time of discharge he still has not regained good quadriceps control and was advised to mobilize with the knee immobilizer until he fully regains quadriceps control and is able to actively straight leg raise. His pain is well controlled with as needed oral hydrocodone/Tylenol. The dressings were reduced on the second postoperative day and the wound is healthy and healing well. No signs of any erythema, induration or discharge. Patient was started on Xarelto 10 mg daily for DVT prophylaxis after surgery. His neurovascular status in both lower extremities is intact. Pedal pulses 2+ bilaterally and fully sensate distally. No clinical evidence of DVT noted. Patient was cleared for discharge by physical therapy. On the day of discharge, the patient has been stable. Patient had intermittent tachycardia otherwise he is vital signs have been stable throughout and he is afebrile at the time of discharge. He is being discharged home with self-care and outpatient physical therapy. During his admission to the hospital he was also seen by Dr. Howell for management of medical problems. On the day of discharge Dr. Howell cleared him for discharge from a medical standpoint. Condition at discharge: Stable and improving. Treatments and Procedures: Total knee arthroplasty, left knee; date of surgery 05/27/2018. Objective Vital signs: Temp Pulse Resp BP Pulse Ox 97.9 F 105 H 18 122/92 H 97 05/30/18 11:26 05/30/18 11:26 05/30/18 11:26 05/30/18 11:26 05/30/18 11:26 no acute distress - *Routine HEENT Exam Head: Present: normocephalic, atraumatic Eye: Present: EOMI ENT: Present: mucous membranes moist - *Routine Neck Exam Present: supple, trachea midline - *Routine Respiratory Exam Present: CTA bilaterally - *Routine Cardiovascular Exam Present: RRR, Normal S1, Normal S2 - *Routine Abdominal Exam Present: soft, normoactive bowel sounds. Absent: tenderness - *Routine Extremities Exam Comments: On examination of the left knee, Silverlon dressing is in place and is clean, dry and intact. There is no erythema or discharge. There is diffuse swelling and some tenderness over the knee joint as to be expected at this stage. Knee range of motion is 5-60 of flexion. Distal pulses are 2+. Capillary refill is brisk. Sensation is intact to light touch throughout. Thigh and calf are soft and there is mild tenderness over the distal thigh. There is also 1+ edema of the left leg, ankle and foot. Patient demonstrates good range of foot and ankle movements. The quadriceps tendon is actively jordan. Patient is not able to actively straight leg raise. - *Routine Skin Exam Present: intact, warm, normal turgor - *Routine Neurological Exam Present: alert, oriented X3, normal speech - Routine Psychiatric Exam Present: normal affect, cooperative Results Labs on day of discharge: Labs from last 24 hours 05/29/18 19:58 POC Glucose 111 H DS: Diagnosis - Discharge Diagnosis (1) History of total knee arthroplasty Status: Acute (2) Degenerative joint disease of left knee Status: Acute (3) Hyperlipidemia Status: Acute (4) Hypothyroidism Status: Acute (5) Myocardial bridge Status: Acute (6) Type 2 diabetes mellitus Status: Acute Discharge Plan - Patient Discharge Instructions ACTIVITY: Continue current activity, Ambulate as tolerated DIET: advance to your usual diet Additional Instructions: monitor for signs of infection, follow up with md. Patient Instructions: DI for Knee Replacement, DI for Surgical Site Infection - Follow up Plan Follow up with: Evin Shukla MD [Staff Physician] - 10 days Disposition: Home, Self-Fpc Medications: Home Medications Medication Instructions Recorded Confirmed Type ezetimibe 10 mg tablet 10 mg PO DAILY 08/21/17 05/27/18 History metformin 500 mg tablet 500 mg PO DAILY 08/21/17 05/27/18 History levothyroxine 137 mcg tablet 137 mcg PO DAILY 90 Days #90 10/06/17 05/27/18 History rosuvastatin 40 mg tablet 40 mg PO DAILY 30 Days #30 10/06/17 05/27/18 History Docusate Sodium [Docusate Sodium 100 mg PO BIDP PRN #20 capsule 05/30/18 Rx 100mg Cap] Ferrous Sulfate [Ferrous Sulfate 325 mg PO BID #90 tablet 05/30/18 Rx 325mg Tablet] Hydrocod/Acet 5/325 mg [[place] 1 - 2 tab PO Q4HP PRN #60 tab 05/30/18 Rx 5/325mg tablet] Rivaroxaban [Xarelto 10mg tablet] 10 mg PO QPMWM #10 tablet 05/30/18 Rx Prescriptions/Medication Reconciliation: New Hydrocod/Acet 5/325 mg [[place] 5/325mg tablet] 1 - 2 tab PO Q4HP PRN #60 tab PRN Reason: Moderate To Severe Pain Docusate Sodium [Docusate Sodium 100mg Cap] 100 mg PO BIDP PRN #20 capsule PRN Reason: Constipation Rivaroxaban [Xarelto 10mg tablet] 10 mg PO QPMWM #10 tablet Ferrous Sulfate [Ferrous Sulfate 325mg Tablet] 325 mg PO BID #90 tablet Continue metformin 500 mg tablet 500 mg PO DAILY ezetimibe 10 mg tablet 10 mg PO DAILY levothyroxine 137 mcg tablet 137 mcg PO DAILY 90 Days #90 rosuvastatin 40 mg tablet 40 mg PO DAILY 30 Days #30 Discontinued aspirin 81 mg chewable tablet 81 mg PO DAILY Mupirocin Calcium [Bactroban Nasal] 1 applic INTRANASAL BID - Additional Information Additional Information: Our recommendations on discharge include physical therapy with weightbearing as tolerated and range of motion exercises of the left knee with emphasis on full extension and regaining flexion gradually. Patient decided to have outpatient physical therapy. Note is made that the patient easily extends the knee to 0 degrees and flexes to 150 degrees while he was under anesthesia for the total knee arthroplasty with the wound closed. I have strongly advised him not to place any pillow behind the knee. But he can place a pillow under the ankle thus allowing gravity/weight of the leg help the knee into full extension. Patient was also advised to keep the leg elevated and ice the knee/use Polar pack on a regular basis. At this stage it is permissible to take a shower and allow the incision to get wet with shower water. After padding the area dry, the wound can be left open. The Silverlon dressing does not need changing for up to 7 days after surgery unless clinically indicated. Patient will follow up with me in the office in approximately 12-14 days from surgery for wound check and to cut the suture ends. Recommend 10 mg of Xarelto p.o. daily for 10 days for DVT prophylaxis. Please feel free to call our office at [phone] or via the hospital plant operator [phone] for any orthopaedic questions or concerns. Patient also has an outpatient follow-up appointment with Dr. Howell next week.
[2018-05-30 15:10] LABS: Anion Gap 12.5 mEq/L (5-15); Calcium 8.9 mg/dL (8.5-10.1); Potassium 3.5 mmoL/L (3.5-5.1)
== END 2018-05-30 16:56 | disposition home or self-care (01) | DRG 470 ==
LOC: OR 06:54 → 2ND 13:59
PROVIDERS: ADMIT Orthopaedic Surgery; ATTEND Orthopaedic Surgery
CPT/HCPCS: 36415; 73560; 80048; 81001; 82550; 82553; 82962; 84443; 84484; 85025; 86850; 90686; 90732; 93005; 96374; 97110; 97116; 97162; 97530; A4649; C1713; C1765; C1776; J2405; J3370

== ENCOUNTER → 2018-06-25 14:24 | Outpatient (CLI) | payer BC, SELFPAY ==
--- NOTE | 2018-06-25 14:33 | XR_ITS ---
XR knee LT 2V HISTORY: Follow-up knee replacement ITS.REASON: ap lateral ORDERING PHYSICIAN: Evin Shukla MD PATIENT AGE: 63 years COMPARISON: 05/27/2018 FINDINGS: Status post total replacement with good alignment and no evidence of orthopedic consultation. The soft tissue gas has resolved since the previous exam. There remains some antibiotic be densities about the knee joint. IMPRESSION: Status post total knee replacement with good alignment
--- NOTE | 2018-06-25 15:30 | NVE_ITS ---
Venous Exam Indications: 729.5 Pain in limb. IMPRESSIONS No evidence of deep or superficial vein thrombosis involving the left lower extremity Labs, prior tests, procedures, and surgery: Left knee joint prosthesis. 2018 Labs, prior tests, procedures, and surgery: Left knee joint prosthesis. 2018 Left lower extremity venous duplex evaluation. Doppler flow study including spectral analysis, color and nolasco scale imaging. Location: Vascular laboratory. Patient status: Outpatient. CRITICAL FINDINGS - Reported to: Linda Shukla office - 06/25/2018 - 16:00pm - Negative for DVT Tables: Venous flow and imaging: + +-------+ + Location Overall Flow properties + +-------+ + Left common femoral Patent Normal phasicity; spontaneous; normal augmentation; compressible + +-------+ + Left saphenofemoral junction Patent Compressible + +-------+ + Left profunda femoral Patent Compressible + +-------+ + Left femoral Patent Normal phasicity; spontaneous; normal augmentation; compressible + +-------+ + Left greater saphenous Patent Normal phasicity; spontaneous; normal augmentation; compressible + +-------+ + Left popliteal Patent Normal phasicity; spontaneous; normal augmentation; compressible + +-------+ + Left posterior tibial Patent Compressible + +-------+ + Left peroneal Patent Compressible + +-------+ + Left gastrocnemius Patent Compressible + +-------+ + Left soleal Patent Compressible + +-------+ + (Report amended ) Electronically signed by: Oren Monroe [id number]
[2018-06-25 16:42] LABS: Basophils # 0.1 K/mm3 (0-0.2); Basophils % 0.7 % (0.1-2.0); Eosinophils # 0.4 K/mm3 (0.0-0.4); Eosinophils % 4.6 % (0.1-12.0); Hemoglobin 11.7 g/dL (14.1-18.0); Lymphocytes # 2.1 K/mm3 (0.7-4.5); Lymphocytes % 24.9 % (10-50); Mean Corpuscular HGB Conc 31.7 g/dL (31.8-35.4); Mean Corpuscular Hemoglobin 26.8 pg (27.0-31.2); Mean Corpuscular Volume 84.7 fl (80-94); Mean Platelet Volume 6.3 fl (7.4-10.4); Monocytes # 0.6 K/mm3 (0.1-1.0); Monocytes % 6.7 % (1.7-9.3); Neutrophils # 5.2 K/mm3 (1.8-7.8); Platelet Count 421 K/mm3 (142-424); Red Blood Count 4.37 M/mm3 (4.60-6.20); Red Cell Distribution Width 14.4 % (11.5-17.5); White Blood Count 8.2 K/mm3 (4.8-10.8)
[2018-06-25 17:23] LABS: Blood Urea Nitrogen 12 mg/dL (7-18); C-Reactive Protein 0.2 mg/L (0.0-0.9); Calcium 9.5 mg/dL (8.5-10.1); Carbon Dioxide 24 mmol/L (21.0-32.0); Chloride 101 mmol/L (98-107); Creatinine,Serum 0.87 mg/dL (0.70-1.30); Erythrocyte Sedimentation Rate 44 mm/hr (0-20); Estimated Glomerular Filt Rate 88 ml/min (>60); GFR (African American) 107 ML/MIN (>60); Glucose 106 mg/dL (74-106); Sodium 139 mmol/L (136-145)
== END ==
PROVIDERS: PCP Family Medicine; Visit Provider Orthopaedic Surgery
DX: Z96.659 Presence of unspecified artificial knee joint (principal)
CPT/HCPCS: 36415; 73560; 80048; 85025; 85651; 86140; 93971

== ENCOUNTER → 2018-08-11 13:57 | Outpatient (CLI) | payer BC, SELFPAY ==
--- NOTE | 2018-08-11 14:00 | XR_ITS ---
XR knee LT 2V HISTORY: Follow-up total knee replacement ITS.REASON: sp LT TKA dos 05/27/18 ORDERING PHYSICIAN: Evin Shukla MD PATIENT AGE: 63 years COMPARISON: 06/25/2018 FINDINGS: Status post total knee arthroplasty with good alignment and no evidence of orthopedic complication with no significant change. IMPRESSION: Good alignment status post total knee arthroplasty
== END ==
PROVIDERS: PCP Family Medicine; Visit Provider Orthopaedic Surgery
DX: Z96.652 Presence of left artificial knee joint (principal)
CPT/HCPCS: 73560

== ENCOUNTER 2018-08-14 09:00 | Outpatient (RCR) | payer BC, SELFPAY ==
--- NOTE | 2018-06-03 15:03 | HMH.PTOPEV ---
PT Outpatient Evaluation Rehab PT Outpatient Evaluation Start: 06/03/18 14:25 Freq: Status: Active Protocol: Document 06/03/18 14:25 PHOJESSIE (Rec: 06/03/18 15:03 PHORNE [id number]) Electronically Signed By Marcos Garcia, PT 06/03/18 14:25 Outpatient Therapy Subjective History Subjective History Pt is a 63 yowm s/p left total knee replacement on the . Pt reports pain is 3/10 at the moment, 3/10 at best, and 6/10 at worst. Pt states pain is dull, ache with numbness in the toes. Pt reports pain in the left hip during movement. Pt reports having diabetes but denies other comorbidities. Pt reports 8 steps to enter home and no stairs inside the home. Pt's goal is to walk without pain. Chief Complaint Pain Stiff Swelling Weakness Symptom Type Ache Dull Numbness Symptoms Relieved By Rest/Positioning Ice Symptoms Aggravated By Sitting Standing Bending/Stooping Physical Activity Walking Prior Functional Limitations None Current Functional Limitations Standing Squatting Recreation Activity Walking Stairs Balance Symptom Description Constant but Variable Level of pain today (0-10) 3 Pain scale - at its best (0-10) 3 Pain scale - at its worst (0-10) 6 Hip/Knee Eval Gait Observation General Gait Pattern Observation Antalgic Gait Decrease Weight Bear (L) Assistive Device Assistive Devices Rolling / Wheeled Walker MMT left Hip Strength Reason Not Measured WFL Knee Extension Strength Grade 3 Fair Knee Flexion Strength Grade 3 Fair ROM Hip ROM Reason Not Measured Within Functional Limits Knee Extension Active Range of Motion ( -12 degrees) Knee Flexion Active Range of Motion ( 60 degrees) Knee ROM Limitations Soft Tissue Tightness Muscle Weakness
== END 2018-08-14 09:05 | disposition home or self-care (01) ==
LOC: PT 09:00
PROVIDERS: Visit Provider Orthopaedic Surgery
DX: Z47.1 Aftercare following joint replacement surgery (principal); Z96.651 Presence of right artificial knee joint
CPT/HCPCS: 97010; 97014; 97016; 97110; 97140; 97163; G0283

== ENCOUNTER → 2018-11-17 10:12 | Outpatient (CLI) | payer BC, SELFPAY ==
--- NOTE | 2018-11-17 10:42 | XR_ITS ---
XR knee LT 2V HISTORY: Follow-up surgery ITS.REASON: sp LT tka, dos 05/27/18 ORDERING PHYSICIAN: Evin Shukla MD PATIENT AGE: 63 years COMPARISON: 08/11/2018 FINDINGS: Status post total replacement. Good alignment. No evidence of orthopedic complication. IMPRESSION: Good alignment status post total knee replacement not significantly changed
== END ==
PROVIDERS: PCP Family Medicine; Visit Provider Orthopaedic Surgery
DX: Z96.652 Presence of left artificial knee joint (principal)
CPT/HCPCS: 73560

== ENCOUNTER → 2019-05-26 08:49 | Outpatient (CLI) | payer BC, SELFPAY ==
--- NOTE | 2019-05-26 08:55 | XR_ITS ---
PROCEDURE: XR KNEE LT 2V CLINICAL INDICATION: 1 year follow up left total knee arthroplasty Follow-up knee arthroplasty COMPARISON: [id number] XR knee LT 4V from 01/29/2018 [id number] XR knee LT 4V from 05/14/2018 KNEELMLT XR knee LT 2V from 05/27/2018 KNEELMLT XR knee LT 2V from 06/25/2018 FINDINGS: Status post total knee arthroplasty with good alignment and no evidence of orthopedic complication. There is some sclerosis in the intramedullary canal somewhat less apparent. There is a suprapatellar effusion. The small opacities in the soft tissues in the suprapatellar region are no longer apparent consistent with resorption of antibiotic beads Other findings:None. IMPRESSION: Good alignment status post total knee replacement Dictated by: Oren Monroe MD 05/26/2019 15:54 Electronically signed by rOen Monroe MD in [place] 05/26/2019 15:54
== END ==
PROVIDERS: PCP Family Medicine; Visit Provider Orthopaedic Surgery
DX: M25.562 Pain in left knee (principal); Z96.659 Presence of unspecified artificial knee joint
CPT/HCPCS: 73560

== ENCOUNTER → 2020-02-09 14:18 | Outpatient (CLI) | payer BC, SELFPAY ==
--- NOTE | 2020-02-09 | CA_ITS ---
APPROVED REPORT EXAM: Comprehensive 2D, Doppler, and color-flow Echocardiogram Human Capital Consultant: Fabiola Lozano RT(R) Ht: 5 ft 10 in Wt: 205lbs BSA: 2.11 BP: 132/72 mmHg Indications: Edema, HTN, DM, hyperlipidemia, family history of HD 2D Dimensions LVOT 1.76 cm (M/F) 1.5-2.5 LVEF (Coleman's) 49.80 % M: 52 - 72 LV Volume 83.80 mL M: 62 - 150 LV Volume Index 39.71 mL/m2 M: 34 - 74 M-Mode Dimensions RVDd 1.82 cm (0.9-2.6) LA Diam 3.45 cm (1.9-4.0) LVDd 5.62 cm (3.5-5.7) Ao Diam 2.60 cm (2.0-3.7) LVDs 4.29 cm (3.5-5.7) IVSd 0.87 cm (0.6-1.1) PWd 0.91 cm (0.6-1.1) EF (Teich) 46.70% FS 23.70% EDV (Teich) 154.90 mL ESV (Teich) 82.60 mL LV Diastology E Decel Time 220.00 (160-240 msec) E/A Ratio 0.9 MED E' 8.10 (< 7 cm/sec) E'/MED E' Ratio 10.12 (>14) LAT E' 10.00 (<10 cm/sec) E/LAT E' Ratio 8.20 (>14) Mitral Valve MV E Max Bill. 82.00 (40-130 cm/s) MV A Velocity 89.00 (40-130 cm/s) E/A Ratio 0.92 MV Decel. Time 220.00 (160-240 ms) MV PHT 64.00 ms Left Ventricle Left atrium is mildly enlarged, left ventricle is normal size, mild concentric left ventricular hypertrophy, visually estimated ejection fraction 55% with no regional wall motion abnormality, grade 1 diastolic dysfunction seen without tissue Doppler evidence of raise left atrial pressure. Right Ventricle Right atrium and right ventricle are mildly enlarged with normal contractility. Aortic Valve Aortic valve is minimally thickened and fibrosed, there is no aortic stenosis or aortic insufficiency. Mitral Valve Mitral valve is grossly normal, there is mild mitral regurgitation. Tricuspid Valve Tricuspid valve grossly normal, there is mild tricuspid regurgitation, tricuspid regurgitation jet velocity is inadequate for calculation of the right ventricular systolic pressure. Pulmonic Valve Pulmonic valve is poorly visualized. Great Vessels Aortic root is normal size. Pericardium No significant pericardial effusion noted. Conclusion 1. Mild biatrial enlargement, normal left ventricular size, mild concentric left ventricular hypertrophy, visually estimated ejection fraction 55% with no regional wall motion abnormality, grade 1 diastolic dysfunction seen without tissue Doppler evidence of raise left atrial pressure. 2. Mildly enlarged right ventricle with normal contractility. 3. Mild mitral and tricuspid regurgitation. 4. No significant pericardial effusion noted. Electronically signed by : Jose Hough, 02/10/2020 16:05:09
== END ==
PROVIDERS: PCP Family Medicine; Visit Provider Family Medicine
DX: R60.0 Localized edema (principal)
CPT/HCPCS: 93306

== ENCOUNTER → 2020-03-06 14:15 | Outpatient (CLI) | payer BC, SELFPAY ==
--- NOTE | 2020-03-06 | XR_ITS ---
PROCEDURE: XR HIP LT 2-3V W/PELVIS CLINICAL INDICATION: PAIN IN LT HIP COMPARISON: No exams were available for comparison FINDINGS: Minimal osteoarthritic change noted involving the hips on both sides with mild sclerosis of the acetabular roof and slight decrease in the hip joint space. No fracture or dislocation. No lytic or blastic change. IMPRESSION: Minimal osteoarthritis Dictated by: Oren Monroe MD 03/06/2020 14:37 Oren Monroe MD in [place] 03/06/2020 14:37
== END ==
PROVIDERS: PCP Family Medicine; Visit Provider Family Medicine
DX: M25.552 Pain in left hip (principal)
CPT/HCPCS: 73502

== ENCOUNTER → 2020-11-20 09:16 | Outpatient (CLI) | payer MEDICARE, SELFPAY | PROVIDERS: PCP Family Medicine; Visit Provider Family Medicine | DX: Z20.822 Contact with and (suspected) exposure to COVID-19 (principal) | CPT/HCPCS: U0003 ==

== ENCOUNTER 2021-08-03 15:04 | Emergency (ER) | payer MEDICARE, SELFPAY ==
[2021-08-03 16:06] VITALS: BP 148/100; PULSE 105; RESP 20; TEMP 36.6; O2SAT 96; BMI 29.4
--- NOTE | 2021-08-03 16:06 | XR_ITS ---
FINAL REPORT CLINICAL HISTORY: Laceration to 5th digit FINDINGS: 3 views of the right hand were obtained. There is a comminuted fracture of the tuft of the 5th distal phalanx. The joint spaces are intact. There is no foreign body. IMPRESSION: Comminuted fracture of the tuft of the 5th distal phalanx. Reviewed, Interpreted and Dictated by Dontrell Evans III, MD Transcribed by Agus Torres Authenticated by Dontrell Evans III, MD on 08/03/2021 04:35:57 PM [facility]
--- NOTE | 2021-08-03 16:50 | HMH.EDUTC ---
[facility] [place] Clinical Impression: Finger fracture Qualifiers: Encounter type: initial encounter Finger: little finger Fracture type: closed Phalanx: distal Fracture alignment: nondisplaced Laterality: right Qualified Code(s): S62.666A - Nondisplaced fracture of distal phalanx of right little finger, initial encounter for closed fracture Finger laceration Qualifiers: Encounter type: initial encounter Finger: little finger Damage to nail status: unspecified Foreign body presence: unspecified Laterality: right Qualified Code(s): S61.216A - Laceration without foreign body of right little finger without damage to nail, initial encounter Disposition: Home, Self-Care Condition on Discharge: Good Instructions: DI for Finger Fracture, DI for Laceration Repair -- Finger, Clindamycin Additional Instructions: Suture/Staple instructions: You have required stitches or Thompson today. Please read the following instructions so you know how to care for them: 1. Keep wound area dry for the first 24 hours. 2 May clean gently with mild soap and water, after 48 hours to prevent crusting over suture knots. 3. You may shower if your provider gives permission but do not take a bath until the skin is healed.. 4. Never leave a wet dressing or Band-Aid on your stitches as this allows bacteria to reach the area and may cause infection. Band-aids can cause the wound to sweat and not recommended to wear for long periods of time Watch for signs of infection: Increasing redness, tenderness or warmth around the suture site Unusual swelling around the site Appearance of pus around each suture or any red streaks Fever If you develop any of the above signs or symptoms of infection, Follow up with Family Physician immediately 5. Suture removal in _10-12___days 6. Return to [facility] or follow up with family doctor for removal. This can be done by any medical provider during regular hours on Friday through Friday, by appointment. Prescriptions: clindamycin HCL [Clindamycin HCl] 300 mg PO Q8H 7 Days #21 cap Transmission Status: Received by [facility] Referrals: Miguel Howell MD [Primary Care Provider] - As needed Time of Disposition: 17:33 Medical Decision Making - Kapil Inquiry Pt receiving controlled substance: No Kapil was queried for this patient: No Vital Signs: 08/03/21 16:06 08/03/21 18:09 Temperature 97.9 F 97.9 F Temperature Source Oral Pulse Rate 105 H Pulse Rate [Left Radial] 105 H Respiratory Rate 20 20 Blood Pressure 148/100 H Blood Pressure [Right Arm] 148/100 H Blood Pressure Mean [Right Arm] 116 Blood Pressure Source [Right Arm] Automatic Cuff Blood Pressure Position [Right Arm] Sitting 02 Sat by Pulse Oximetry 96 Oxygen Delivery Method Room Air Orders (Tests/Meds): ED MEDICATIONS Discontinued Medications Generic Name Dose Route Start Last Admin Trade Name Freq PRN Reason Stop Dose Admin Tetanus/Reduced Diphtheria/Acell Pertussis 0.5 ml 08/03/21 17:26 08/03/21 18:08 Tet/Diphth/Pert-Adult 0.5ml Syringe IM 08/03/21 17:27 0.5 ml .ONCE ONE Administration - Physician Consults Physician Consulted: Dr Lombardi Time: 16:45 Comment/Response: Spoke with Dr Lombardi and he viewed xrays and agreed ok to close and dc patient home with antibiotics x 7 days Medical Decision Narrative: Patient states that he is allergic to PCN's unsure if he can take Cephlosporins but has taken Clindamycin in the past [facility] [place] HPI - General Stated complaint: rt hand lac Time Seen by Provider: 08/03/21 16:20 Mode of Arrival: Ambulatory Source of Information: Patient Limitations: No Limitations Description of Symptoms (Recalled from Triage Doc. by RN): C/O RIGHT PINKY AND MIDDLE CUT FINGER BY A FURN METAL BAR HEENT Symptoms (Recalled from RN notes): No Resp Symptoms (Recalled from RN notes): No Skin Symptoms (Recalled from RN notes): Yes MS Symptoms (Recalled from RN notes): No Functional Status (R
[2021-08-03 18:09] VITALS: BP 148/100; PULSE 105; RESP 20; TEMP 36.6
== END 2021-08-03 18:11 | disposition home or self-care (01) ==
PROVIDERS: Emergency Provider Nurse Practitioner; PCP Family Medicine
DX: S61.212A Laceration without foreign body of right middle finger without damage to nail, initial encounter (principal); S62.666A Nondisplaced fracture of distal phalanx of right little finger, initial encounter for closed fracture; S61.216A Laceration without foreign body of right little finger without damage to nail, initial encounter; Z23 Encounter for immunization; W26.9XXA Contact with unspecified sharp object(s), initial encounter; Y92.019 Unspecified place in single-family (private) house as the place of occurrence of the external cause
CPT/HCPCS: 12002; 73130; 90471; 90715; 96372; 99283

== ENCOUNTER → 2022-03-26 10:28 | Outpatient (CLI) | payer MEDICARE, SELFPAY ==
--- NOTE | 2022-03-26 10:33 | XR_ITS ---
FINAL REPORT CLINICAL HISTORY: SOFT TISSUE LESION near right clavicle, x 2 mos FINDINGS: Two views of the chest were obtained. The heart size and pulmonary vascularity are within normal limits. The mediastinum is normal. No acute pulmonary abnormality is identified. There is no pneumothorax. No soft tissue masses identified. The bony thorax is intact. IMPRESSION: No active cardiopulmonary disease. No soft tissue mass identified. If indicated, CT or MRI may be helpful. Reviewed, Interpreted and Dictated by Dontrell Evans III, MD Transcribed by Mily Avelar Authenticated and [facility]
== END ==
PROVIDERS: PCP Family Medicine; Visit Provider Family Medicine
DX: M79.9 Soft tissue disorder, unspecified (principal)
CPT/HCPCS: 71046

== ENCOUNTER → 2022-04-15 10:42 | Outpatient (CLI) | payer MEDICARE, SELFPAY ==
--- NOTE | 2022-04-15 10:47 | US_ITS ---
FINAL REPORT CLINICAL HISTORY: SOFT TISSUE LESION R CLAVICLE FINDINGS: Limited sonographic images of the submandibular and parotid region and right supraclavicular were obtained. No mass or adenopathy is identified. There is normal appearance of the visualized salivary glands. IMPRESSION: Unremarkable exam however if the palpable abnormality persists, consider contrast-enhanced CT or MRI. Reviewed, Interpreted and Dictated by Miguel Boyer MD Transcribed by Araceli Henry Authenticated and [facility]
== END ==
PROVIDERS: PCP Family Medicine; Visit Provider Nurse Practitioner Family
DX: R22.31 Localized swelling, mass and lump, right upper limb (principal); M79.9 Soft tissue disorder, unspecified
CPT/HCPCS: 76536

== ENCOUNTER 2022-05-31 09:21 | Day surgery (SDC) | payer MEDICARE, SELFPAY ==
[2022-05-30 11:41] VITALS: BMI 29.4
[2022-05-31 09:57] VITALS: BP 139/85; PULSE 110; RESP 18; TEMP 36.3; O2SAT 94
--- NOTE | 2022-05-31 10:39 | P.PN_ITS ---
[facility] Disclaimer: The information contained in this section may have been updated after the patient was seen, as this information can be updated by other users. Medical History Diabetes HLD (hyperlipidemia) Hypothyroid Surgical History History of knee replacement Family History Other Colon cancer Family history of heart disease Social History Smoking Status: Never smoker alcohol intake: never substance use type: denies use current occupational status: employed and retired Travel in the last 8 weeks: None household members: spouse housing: house current occupation: [employer] current occupational exposures/hazards: No caffeine: Yes [facility] Anesthesia Checklist Patient Identification Patient Identification: Arm Band and Family Structural Data Admitted From: Home Planned Operative Procedure/s: Colonoscopy screening. Consent for Planned Operative Procedure(s) Verified: Yes Verified Documents: Surgical Consent and History and Physical NPO Status Verified Time NPO: 00:00 Additional verifications Patient : No Anesthesia Reactions: No Hx Blood Transfusions: No Blood Transfusion Reaction: No Previous Colonoscopy: Yes Airway Assessment C-Spine Mobility Assessed: Yes TMJ Mobility Assessed: Yes Dentition: Good Dentition Neurological Assessment Level of Consciousness: Awake Hx Seizures: No Numbness or tingling in extremities: No Anesthesia Plan Anesthesia Risk discussed: Yes ASA Class: II Anesthesia Type: MAC Preoperative Comments Pre-Operative Comments: niddm
[2022-05-31 10:51] VITALS: O2SAT 94
--- NOTE | 2022-05-31 10:56 | EXP.ANES.CKL ---
[facility] Disclaimer: The information contained in this section may have been updated after the patient was seen, as this information can be updated by other users. Medical History Diabetes HLD (hyperlipidemia) Hypothyroid Surgical History History of knee replacement Family History Other Colon cancer Family history of heart disease Social History Smoking Status: Never smoker alcohol intake: never substance use type: denies use current occupational status: employed and retired Travel in the last 8 weeks: None household members: spouse housing: house current occupation: [employer] current occupational exposures/hazards: No caffeine: Yes [facility] Anesthesia Checklist Structural Data Planned Operative Procedure/s: colonoscopy Additional verifications Anesthesia Reactions: No Hx Blood Transfusions: No Blood Transfusion Reaction: No Anesthesia Plan Anesthesia Type: MAC
--- NOTE | 2022-05-31 11:33 | HMH.SCOPE ---
Procedure: Date: 05/31/22 Patient Date of :: 1955 Procedure Performed:: Total colonoscopy to cecum with snare polypectomy of descending colon polyp Indications:: Patient is a 67-year-old male. He has a family history of colon cancer in his mother. I performed colonoscopy on 02/20/2010. Given the family history 5-year follow-up colonoscopy was recommended. Performing Provider:: Dontrell Rivas MD Referring Provider:: Tae Howell MD Sedation:: MAC sedation Procedure:: Patient history was obtained and appropriate physical examination was performed. Patient's medications and allergies were reviewed. Informed consent was obtained after explaining the benefits, alternatives, and risks of the procedure including, but not limited to, bleeding, perforation, missed lesions, and adverse reaction to anesthesia medications. Patient was transported to endoscopy procedure room. Patient was connected to monitoring devices. Throughout the procedure the patient's blood pressure, pulse, and oxygen saturations were monitored continuously. Patient identification and planned procedure were verified by the staff. Patient was positioned in lateral decubitus position. Digital anorectal exam was performed. Variable stiffness Olympus colonoscope was inserted and advanced under direct visualization to the cecum. Adequacy of the colonic preparation was noted. The colonoscope was then slowly withdrawn while carefully examining the color, texture, anatomy, and integrity of the mucosoa circumferentially. Within the rectum retroflexion was performed. Colonoscope was then withdrawn. Findings:: He had a moderate to poor preparation with a large amount of particulate stool throughout the colon. High-volume irrigation and suctioning was performed which allowed for fair visualization. He had some degree of scattered pandiverticulosis. There was a small adenomatous appearing polyp in the descending colon removed with cold snare. Retroflexion within the rectum revealed no evidence of any pathologic internal hemorrhoids. He did have external hemorrhoid tags. Impression: Fair prep Scattered pandiverticulosis Small descending colon polyp External hemorrhoids Recommendations:: Given family history and suboptimal prep along with probable adenomatous polyp recommend repeat colonoscopy likely 2 years with maximum prep Complications:: None Estimated blood obtained (mL): 1
[2022-05-31 11:35] VITALS: BP 99/60; PULSE 90; RESP 15; TEMP 36.5; O2SAT 90
[2022-05-31 11:45] VITALS: BP 104/70; PULSE 90; RESP 16; O2SAT 96
[2022-05-31 11:55] VITALS: BP 117/83; PULSE 86; RESP 17; O2SAT 94
[2022-05-31 12:02] VITALS: BP 124/82; PULSE 83; RESP 16; TEMP 36.6; O2SAT 96
[2022-05-31 12:32] LABS: POC Glucose,Bedside 105 (70-110)
== END 2022-05-31 12:05 | disposition home or self-care (01) ==
PROVIDERS: PCP Family Medicine; Visit Provider Surgery
PROC: 0DJD8ZZ Inspection of Lower Intestinal Tract, Via Natural or Artificial Opening Endoscopic (ICD-10-PCS; principal; 2022-05-31 10:30)
DX: Z12.11 Encounter for screening for malignant neoplasm of colon (principal); D12.4 Benign neoplasm of descending colon; Z80.0 Family history of malignant neoplasm of digestive organs; K64.4 Residual hemorrhoidal skin tags; Z79.899 Other long term (current) drug therapy; E11.9 Type 2 diabetes mellitus without complications
CPT/HCPCS: 45385; 82962; 88305

== ENCOUNTER 2024-09-04 18:44 | Emergency (ER) | payer MEDICARE, SELFPAY ==
[2024-09-04 18:51] VITALS: BP 143/81; PULSE 126; RESP 16; TEMP 36.9; O2SAT 96; BMI 29.4
[2024-09-04 19:00] VITALS: BP 161/85; PULSE 122; O2SAT 95
--- NOTE | 2024-09-04 19:06 | ECG_ITS ---
APPROVED REPORT Exam: Resting ECG HR:119 bpm ECG Measurements Heart Rate 119 AXES SC 152 P 51 QRSd 98 QRS 93 QT 318 T 34 QTc 389 Conclusion SINUS TACHYCARDIA BORDERLINE RIGHT AXIS DEVIATION [QRS AXIS > 90] LOW QRS VOLTAGE IN PRECORDIAL LEADS [QRS DEFLECTION < 1.0 mV IN CHEST LEADS] ABNORMAL RHYTHM ECG Electronically signed by : CARLOS FORREST, 09/04/2024 23:00:00
--- NOTE | 2024-09-04 19:13 | HMH.EDGENADL ---
Discharge Plan Disposition Patient Disposition: Home, Self-Care Condition: Good Prescriptions Prescriptions: New doxycycline hyclate 100 mg capsule 100 mg PO BID 5 Days Qty: 10 0RF No Action metformin 500 mg tablet 500 mg PO DAILY ezetimibe [Zetia] 10 mg tablet 10 mg PO DAILY levothyroxine 137 mcg tablet 137 mcg PO DAILY 90 Days Qty: 90 rosuvastatin 40 mg tablet 40 mg PO DAILY 30 Days Qty: 30 Referrals Follow up/Referrals: Miguel Howell MD [Primary Care Provider] - See instructions Activity Restrictions/Add. Instructions Additional Instructions/Restrictions: I have written a prescription for a course of antibiotics that would treat a tickborne illness. As we discussed, given that your vital signs have improved and you are much more steady on your feet, with CT scans of your head and neck not showing evidence of an acute stroke, I have shared decision making we will be discharging you at this time and treating you for suspected tickborne illness. Please return with any new or worsening symptoms. Clinical Impressions Clinical Impression: Fever, Tick bite Print Language Print Language: Czech Discharge ED Provider: Kenny Interiano Adult HPI General Chief complaint: Weakness Stated complaint: Fever; Loss of Balance Time Seen by Provider: 09/04/24 19:13 Mode of Arrival: Ambulatory Source of Information: Patient Description of Symptoms (Recalled from ER Triage Doc. by RN): Patient reports fever x24 hours at 100.4 and balance issues x32 hours. Patient reports multiple falls since yesterday. Patient presents with walker to triage but does not normally use one. LKW 1000 on 09/03. History of Present Illness HPI narrative: The patient presents to the Emergency Department with a chief complaint of balance issues, weakness, and fever. The patient developed a fever yesterday, followed by balance problems and weakness that began this morning. The patient reports feeling like they had no strength in their arms or legs when they woke up this morning. They describe feeling off balance all over, not specifically on one side. The balance issues preceded a fall that occurred around 3 or 4 o'clock today. During the fall, the patient landed on their back and hit their head on a mirror, specifically on one side, but did not lose consciousness. The patient denies any pain outside of their head. The patient's fitness/wellness director notes that when helping the patient up after the fall, the patient was like a uma-totter, unsteady and moving back and forth and side to side while trying to regain balance. The patient also experienced chills around the time of the fall. The patient denies any previous balance issues or need for assistance in getting around normally. They also deny any blurry or double vision. The patient reports taking four daily medications but does not specify which ones. There have been no recent changes to their medication regimen. The patient denies any belly pain or pain with urination. The patient has unspecified medical conditions requiring daily medications. They live with someone else, as implied by the fitness/wellness director's statement about helping the patient after the fall. In addition to the chief complaints, the patient reports positive symptoms for fever, chills, weakness, headache, balance issues, coordination problems, and weakness in arms and legs. The patient also reports a recent fall. Please note that above description of symptoms, in this electronic medical record under categorization of recalled from ER triage doctor by RN are reflective of an initial nursing assessment, however, is not reflective of my full history and physical exam that was personally taken and clarified. Consequentially, this preceding description of symptoms, which may include the patient's categorized chief complaint in the EMR, do not reflect my personal clinical impression, and the ultimate description of history of present illness and patient stated complaints should be deferred to this section of the note. Unless stated otherwise or congruent with this section of the note, additional signs, symptoms, or incongruence should be interpreted as inaccurate with my clinical impression. Related Data Home Medications ?Medication ?Instructions ?Recorded ?Confirmed ezetimibe 10 mg tablet (Zetia) 10 mg PO DAILY Cholesterol 08/21/17 05/30/22 metformin 500 mg tablet 500 mg PO DAILY Diabetes 08/21/17 05/30/22 levothyroxine 137 mcg tablet 137 mcg PO DAILY thyroid 90 days 10/06/17 05/30/22 ##90 rosuvastatin 40 mg tablet 40 mg PO DAILY Cholesterol 30 days 10/06/17 05/30/22 ##30 Previous Rx's ?Medication ?Instructions ?Recorded doxycycline hyclate 100 mg capsule 100 mg PO BID 5 days #10 caps 09/04/24 Allergies Allergy/AdvReac Type Severity Reaction Status Date / Time Penicillins (PENICILLINS) Allergy Unknown Verified 05/31/22 09:55 [facility] Disclaimer: The information contained in this section may have been updated after the patient was seen, as this information can be updated by other users. Medical History (Updated 09/04/24 @ 21:50 by Kenny Interiano MD) Hypothyroid Diabetes HLD (hyperlipidemia) Surgical History History of knee replacement Family History Other Colon cancer Family history of heart disease Social History Smoking Status: Never smoker alcohol intake: never substance use type: denies use current occupational status: employed and retired Travel in the last 8 weeks?: None household members: spouse housing: house current occupation: [employer] current occupational exposures/hazards: No caffeine: Yes Have you lived/traveled outside US in past 30 days?: No Contact w/someone who lives/traveled outside US past 30 days?: No Exposure to someone with infectious disease in past 14 days?: No Do you have a fever (greater than 100.4 F or 38 C)?: Yes Have you tested positive for COVID-19?: No Exposed to someone with COVID-19 in past 14 days?: No Do you have a sore throat?: No Do you have a cough?: No Do you have any weakness?: No Do you have any diarrhea?: No Are you experiencing any unusual bleeding?: No Do you have any muscle aches/pain?: No Do you have any abdominal pain?: No Are you experiencing loss of taste or smell?: No Other Medical History Have you received the Flu Vaccine for this season: Yes Have you received the Pneumonia Vaccine: Yes ROS Obtained: Yes other As per HPI Physical Exam General General appearance: alert and in no apparent distress Head Head exam: atraumatic and normocephalic Eye Eye exam: Present normal appearance Neck Neck exam: Present normal inspection Chest Chest inspection: Present normal inspection and symmetric chest wall rise Respiratory Respiratory exam: Present normal lung sounds bilaterally; Absent respiratory distress Cardiovascular Cardiovascular exam: Present regular rate and normal rhythm Abdominal Exam Abdominal exam: Present soft Neurological Exam Neurological exam: Present alert and oriented X3 Psychiatric Psychiatric exam: Present normal affect and normal mood Skin Skin exam: Present warm and dry Other Other exam information: Romberg negative. No dysmetria, no dysphonia, no diplopia, no dysdiadochokinesia, no nystagmus at rest. No sensory or motor deficits in all 4 extremities Medical Decision Making Medical Records Medical records reviewed: Yes I reviewed the patient's medical records. Screening: Per USPSTF and CDC recommendations, given the prevalence of disease in our region, it is our hospital?s policy to screen for HIV and viral Hepatitis for all patients aged 18 and over and those with ongoing risk factors. Kapil Inquiry Pt receiving controlled substance: No Vital Signs: 09/04/24 18:51 09/04/24 19:00 09/04/24 22:01 Temperature 98.5 F 98.1 F Temperature Source Temporal Artery Scan Oral Pulse Rate 122 H 87 Pulse Rate [Right] 126 H Respiratory Rate 16 20 Blood Pressure 161/85 H 137/79 Blood Pressure [Right Arm] 143/81 H Blood Pressure Mean [Right Arm] 101 Blood Pressure Source Automatic Cuff Blood Pressure Position Sitting 02 Sat by Pulse Oximetry 96 95 Oxygen Delivery Method Room Air Room Air Lab Data Lab Results 09/04/24 19:04: WBC 6.5, RBC 5.13, Hgb 15.0, Hct 44.4, MCV 86.5, MCH 29.2, MCHC 33.8, RDW 13.3, Plt Count 226, MPV 9.1, Neut % (Auto) 76.6, Lymph % (Auto) 12.6, [place] % (Auto) 9.4 H, Eos % (Auto) 0.0 L, Baso % (Auto) 0.6, Neut # (Auto) 5.0, Lymph # (Auto) 0.8, [place] # (Auto) 0.6, Eos # (Auto) 0.0, Baso # (Auto) 0.0, Sodium 135 L, Potassium 3.8, Chloride 102, Carbon Dioxide 23, Anion Gap 13.8, BUN 14, Creatinine 1.10, Estimated Creat Clear 82, Estimated GFR 66, Est GFR ( Amer) 80, Glucose 139 H, Calcium 9.6, Magnesium 2.0, Total Bilirubin 2.1 H, AST 47, ALT 35, Alkaline Phosphatase 89, Total Creatine Kinase 115, Total Protein 7.9, Albumin 4.7, Globulin 3.2, Albumin/Globulin Ratio 1.5, Lipase 41, TSH 3.35, Free T4 0.88 09/04/24 20:00: Urine Color Yellow, Urine Appearance Clear, Urine pH 6.0, Ur Specific [place] 1.010, Urine Protein Trace, Urine Glucose (UA) Negative, Urine Ketones Negative, Urine Blood 1+ A, Urine Nitrate Negative, Urine Bilirubin Negative, Urine Urobilinogen 1.0, Ur Leukocyte Esterase Negative, Urine RBC 3-5, Urine WBC None, Ur Squamous Epith Cells None, Urine Bacteria None, Hyaline Casts Occ 09/04/24 19:04 09/04/24 19:04 Orders (Tests/Meds): ED MEDICATIONS Discontinued Medications Generic Name Dose Route Start Last Admin Trade Name Freq PRN Reason Stop Dose Admin Doxycycline Hyclate 100 mg 09/04/24 21:49 09/04/24 22:00 Doxycycline Hycl 100 Mg Tablet PO 09/04/24 21:50 100 mg ONCE ONE Administration Lactated Ringer's 1,000 mls @ 999 mls/hr 09/04/24 19:37 09/04/24 19:50 Lactated Ringer's 1000 Ml Bag IV 09/04/24 20:37 999 mls/hr .Q1H1M ONE Administration Iopamidol 80 ml 09/04/24 20:26 09/04/24 20:27 Iopamidol-370 (76%);100ml Bottle IV 09/04/24 20:27 80 ml ONCE ONE Administration Sodium Chloride 50 ml 09/04/24 20:26 09/04/24 20:27 0.9 % Sodium Chloride 50 Ml Vial IV 09/04/24 20:27 50 ml ONCE ONE Administration Sodium Chloride 10 ml 09/04/24 20:26 09/04/24 20:27 Sodium Chloride 0.9% 10ml Syr (Rad Only) IV 09/04/24 20:27 10 ml ONCE ONE Administration ORDERS Category Date Time Status CT angio head Stat Cat Scan 09/04/24 19:[address] angio neck Stat Cat Scan 09/04/24 19:[address] head/brain wo con Stat Cat Scan 09/04/24 19:38 Completed CBC w/Auto Diff [Complete Blood Count Auto Diff] Stat Lab 09/04/24 19:04 Completed CK [Creatine Kinase] Stat Lab 09/04/24 19:04 Completed CMP [Comprehensive Metabolic Panel] Stat Lab 09/04/24 19:04 Completed Free T4 (Free Thyroxine) Stat Lab 09/04/24 19:04 Completed Lipase Stat Lab 09/04/24 19:04 Completed Lyme B. burgdorferi PCR Blood Stat Lab 09/04/24 19:04 Received MAG [Magnesium] Stat Lab 09/04/24 19:04 Completed TSH [Thyroid Stimulating Hormone] Stat Lab 09/04/24 19:04 Completed Urinalysis and Microscopic Stat Lab 09/04/24 20:00 Completed Blood Culture Stat Micro 09/04/24 19:57 Results Medical Decision Narrative: Patient with history and exam per above presenting for evaluation of fever, generalized weakness, reported balance issues. Diagnoses considered include CVA, global weakness secondary to infection, intracranial hemorrhage, among others. Patient, however, exhibits no clinical evidence suggestive of central vertigo and denies overt vertiginous symptoms. ED workup and treatment included: ED MEDICATIONS Discontinued Medications Generic Name Dose Route Start Last Admin Trade Name Freq PRN Reason Stop Dose Admin Doxycycline Hyclate 100 mg 09/04/24 21:49 09/04/24 22:00 Doxycycline Hycl 100 Mg Tablet PO 09/04/24 21:50 100 mg ONCE ONE Administration Lactated Ringer's 1,000 mls @ 999 mls/hr 09/04/24 19:37 09/04/24 19:50 Lactated Ringer's 1000 Ml Bag IV 09/04/24 20:37 999 mls/hr .Q1H1M ONE Administration Iopamidol 80 ml 09/04/24 20:26 09/04/24 20:27 Iopamidol-370 (76%);100ml Bottle IV 09/04/24 20:27 80 ml ONCE ONE Administration Sodium Chloride 50 ml 09/04/24 20:26 09/04/24 20:27 0.9 % Sodium Chloride 50 Ml Vial IV 09/04/24 20:27 50 ml ONCE ONE Administration Sodium Chloride 10 ml 09/04/24 20:26 09/04/24 20:27 Sodium Chloride 0.9% 10ml Syr (Rad Only) IV 09/04/24 20:27 10 ml ONCE ONE Administration ORDERS Category Date Time Status CT angio head Stat Cat Scan 09/04/24 19:[address] angio neck Stat Cat Scan 09/04/24 19:[address] head/brain wo con Stat Cat Scan 09/04/24 19:38 Completed CBC w/Auto Diff [Complete Blood Count Auto Diff] Stat Lab 09/04/24 19:04 Completed CK [Creatine Kinase] Stat Lab 09/04/24 19:04 Completed CMP [Comprehensive Metabolic Panel] Stat Lab 09/04/24 19:04 Completed Free T4 (Free Thyroxine) Stat Lab 09/04/24 19:04 Completed Lipase Stat Lab 09/04/24 19:04 Completed Lyme B. burgdorferi PCR Blood Stat Lab 09/04/24 19:04 Received MAG [Magnesium] Stat Lab 09/04/24 19:04 Completed TSH [Thyroid Stimulating Hormone] Stat Lab 09/04/24 19:04 Completed Urinalysis and Microscopic Stat Lab 09/04/24 20:00 Completed Blood Culture Stat Micro 09/04/24 19:57 Results Labs were independently interpreted by me, significant for no acute findings Imaging was independently visualized and interpreted by me, significant for no acute findings Please refer to radiology report for full details. Patient and family report marked improvement of symptoms upon repeat evaluation. Etiology of fevers still is slightly unclear at this time however patient at this time reports he was bit by a tick recently and it remained on his skin for approximately 3 days. Patient may be suffering from tickborne illness. He will be prescribed empirically a course of doxycycline and follow-up with his primary care provider. I discussed my clinical impression with patient and answered all questions. At this time, the evidence for any other entities in the differential is insufficient to warrant any further testing or ED observation. This was explained to the patient. The patient was advised that persistent or worsening symptoms require further evaluation. Critical Care Critical Care Time Critical Care Time: No
--- NOTE | 2024-09-04 19:38 | CT_ITS ---
PROCEDURE INFORMATION: Exam: CT Head Without Contrast Exam date and time: 09/04/2024 8:27 PM Age: 69 years old Clinical indication: Other: Fever, PENA, global weakness/imbalance TECHNIQUE: Imaging protocol: Computed tomography of the head without contrast. Radiation optimization: All CT scans at this facility use at least one of these dose optimization techniques: automated exposure control; mA and/or kV adjustment per patient size (includes targeted exams where dose is matched to clinical indication); or iterative reconstruction. COMPARISON: US SOFT TISSUE HEAD AND NECK 04/15/2022 10:52 AM FINDINGS: Brain: No hemorrhage. Unremarkable white matter. No mass effect. Cerebral ventricles: No ventriculomegaly. Paranasal sinuses: Visualized sinuses are unremarkable. No fluid levels. Mastoid air cells: Visualized mastoid air cells are well aerated. Bones: Unremarkable. No acute fracture. Soft tissues: Unremarkable. IMPRESSION: No acute intracranial abnormality.
--- NOTE | 2024-09-04 19:38 | CT_ITS ---
PROCEDURE INFORMATION: Exam: CTA Head With Contrast, Arteriography Exam date and time: 09/04/2024 8:29 PM Age: 69 years old Clinical indication: Other: Fever, PENA, global weakness/imbalance TECHNIQUE: Imaging protocol: Computed tomographic angiography of the head with contrast. Exam focused on the arteries. 3D rendering (Not supervised by radiologist): MIP and/or 3D reconstructed images were created by the technologist. Radiation optimization: All CT scans at this facility use at least one of these dose optimization techniques: automated exposure control; mA and/or kV adjustment per patient size (includes targeted exams where dose is matched to clinical indication); or iterative reconstruction. Contrast material: ISO 370; Contrast volume: 80 ml; Contrast route: INTRAVENOUS (IV); COMPARISON: CT HEAD/BRAIN WO CON 09/04/2024 8:27 PM FINDINGS: ANTERIOR CIRCULATION: Right internal carotid artery: Intracranial segment is patent with no significant stenosis. No aneurysm. Right middle cerebral artery: No occlusion or significant stenosis. No aneurysm. Right anterior cerebral artery: No occlusion or significant stenosis. No aneurysm. Left internal carotid artery: Intracranial segment is patent with no significant stenosis. No aneurysm. Left middle cerebral artery: No occlusion or significant stenosis. No aneurysm. Left anterior cerebral artery: No occlusion or significant stenosis. No aneurysm. POSTERIOR CIRCULATION: Right vertebral artery: No occlusion or significant stenosis. No aneurysm. Left vertebral artery: No occlusion or significant stenosis. No aneurysm. Basilar artery: No occlusion or significant stenosis. No aneurysm. Right posterior cerebral artery: origin of the right HOG STICKER without significant stenosis or occlusion. Left posterior cerebral artery: origin of the left HOG STICKER without significant stenosis or occlusion. Veins: Venous sinuses and cerebral veins are patent. No intraluminal thrombus. Brain: No hemorrhage, mass effect, or midline shift. Cerebral ventricles: No ventriculomegaly. Bones/joints: Unremarkable. No acute fracture. Soft tissues: Unremarkable. IMPRESSION: No significant stenosis or large vessel occlusion.
--- NOTE | 2024-09-04 19:38 | CT_ITS ---
PROCEDURE INFORMATION: Exam: CTA Neck With Contrast Exam date and time: 09/04/2024 8:29 PM Age: 69 years old Clinical indication: Other: Fever, PENA, global weakness/imbalance TECHNIQUE: Imaging protocol: Computed tomographic angiography of the neck with contrast. Exam focused on the cervical segments of the vasculature. 3D rendering (Not supervised by radiologist): MIP and/or 3D reconstructed images were created by the technologist. Radiation optimization: All CT scans at this facility use at least one of these dose optimization techniques: automated exposure control; mA and/or kV adjustment per patient size (includes targeted exams where dose is matched to clinical indication); or iterative reconstruction. Contrast material: ISO 370; Contrast volume: 80 ml; Contrast route: INTRAVENOUS (IV); COMPARISON: CT HEAD/BRAIN WO CON 09/04/2024 8:27 PM FINDINGS: Right common carotid artery: No stenosis. No dissection or occlusion. Right internal carotid artery: No stenosis of the extracranial segment. No dissection or occlusion. Right external carotid artery: No occlusion or stenosis of the origin. Left common carotid artery: No stenosis. No dissection or occlusion. Left internal carotid artery: No stenosis of the extracranial segment. No dissection or occlusion. Left external carotid artery: No occlusion or stenosis of the origin. Right vertebral artery: No stenosis. No dissection or occlusion. Left vertebral artery: No stenosis. No dissection or occlusion. Soft tissues: Unremarkable. Bones/joints: Advanced degenerative spondylosis in the cervical spine. IMPRESSION: 1. No stenosis or occlusion. 2. Advanced degenerative spondylosis in the cervical spine. REFERENCES: NASCET CRITERIA. The degree of stenosis in the cervical segment of the internal carotid artery is based on NASCET criteria. Normal is no stenosis. Mild is less than 50% stenosis. Moderate is 50-69% stenosis. Severe is 70% to 99% stenosis. Total occlusion is no detectable patent lumen.
[2024-09-04] MEDS: LACTATED RINGERS 1000ML 1,000 ML 999 ML IV (19:50)
[2024-09-04 19:54] LABS: Basophils % 0.6 % (0.1-2.0); Hematocrit 44.4 % (42.0-52.0); Immature Granulocytes # 0.05 10^3uL; Immature Granulocytes % 0.8 %; Lymphocytes # 0.8 K/mm3 (0.7-4.5); Lymphocytes % 12.6 % (10-50); Mean Corpuscular HGB Conc 33.8 g/dL (31.8-35.4); Mean Corpuscular Hemoglobin 29.2 pg (27.0-31.2); Mean Corpuscular Volume 86.5 fl (80-94); Mean Platelet Volume 9.1 fl (7.4-10.4); Monocytes # 0.6 K/mm3 (0.1-1.0); Monocytes % 9.4 % (1.7-9.3); Neutrophils % 76.6 % (37.0-80.0); Nucleated Red Blood Cells # 0 10^3/uL; Nucleated Red Blood Cells % 0 %; Platelet Count 226 K/mm3 (142-424); Red Blood Count 5.13 M/mm3 (4.60-6.20); Red Cell Distribution Width 13.3 % (11.5-17.5); Red Cell Distribution Width-SD 42.1 fL; White Blood Count 6.5 K/mm3 (4.8-10.8)
[2024-09-04 20:04] LABS: Albumin Level 4.7 g/dl (3.5-5.0); Chloride 102 mmol/L (98-107); Potassium 3.8 mmoL/L (3.5-5.1); Sodium 135 mmol/L (136-145)
[2024-09-04 20:06] LABS: Blood Urea Nitrogen 14 mg/dl (9-20); Creatinine Clearance Estimated 82 mL/min (50-200); Estimated Glomerular Filt Rate 66 ml/min (>60); GFR (African American) 80 ML/MIN (>60)
[2024-09-04 20:07] LABS: Microscopic, Urine URINE MICROSCOPIC (MICROSCOPIC)
[2024-09-04 20:07] LABS: Alanine Aminotransferase 35 U/L (12-78); Albumin/Globulin Ratio 1.5 (1.1-1.8); Alkaline Phosphatase 89 U/L (38-126); Anion Gap 13.8 mEq/L (5-15); Aspartate Amino Transferase 47 U/L (17-59); Bilirubin,Total 2.1 mg/dl (0.2-1.3); Calcium 9.6 mg/dl (8.4-10.2); Carbon Dioxide 23 mmol/L (22.0-30.0); Creatine Kinase 115 U/L (55-170); Globulin 3.2 g/dL (1.3-3.2); Glucose 139 mg/dl (74-100); Lipase 41 U/L (23-300); Total Protein,Serum 7.9 g/dl (6.3-8.2)
[2024-09-04 20:20] LABS: Appearance,Urine CLEAR (Clear); Bilirubin,Urine Negative (Negative); Blood, Urine 1+ (Negative); Color,Urine YELLOW (Yellow); Glucose,Urine (UA) Negative (Negative); Ketones,Urine Negative (Negative); Leukocyte Esterase,Urine Negative (Negative); Nitrate,Urine Negative (Negative); Protein,Urine TRACE (Negative)
[2024-09-04 20:25] LABS: Free T4 (Free Thyroxine) 0.88 ng/dl (0.78-2.19)
[2024-09-04] MEDS: SODIUM CHLORIDE 0.9% 10ML SYR (RAD ONLY) 10 ML IV (20:27)
[2024-09-04] MEDS: 0.9 % SODIUM CHLORIDE 50 ML VIAL IV (20:27)
[2024-09-04] MEDS: IOPAMIDOL-370 (76%);100ML BOTTLE 80 ML IV (20:27)
[2024-09-04 20:39] LABS: Thyroid Stimulating Hormone 3.35 uIU/mL (0.465-4.68)
[2024-09-04 20:39] LABS: Hyaline Casts,Urine OCC #/lpf (0)
[2024-09-04] MEDS: DOXYCYCLINE HYCL 100 MG TABLET PO (22:00)
[2024-09-04 22:01] VITALS: BP 137/79; PULSE 87; RESP 20; TEMP 36.7; O2SAT 100
[2024-09-08 11:34] LABS: Lyme B. burgdorferi PCR Blood Negative (Negative)
--- NOTE | 2024-09-12 15:21 | PC.NURSE ---
blood cultures completed and no growth, ntd.
== END 2024-09-04 22:03 | disposition home or self-care (01) ==
PROVIDERS: Emergency Provider Emergency Medicine; PCP Family Medicine
DX: T14.8XXA Other injury of unspecified body region, initial encounter (principal); R50.9 Fever, unspecified; R53.1 Weakness; W57.XXXA Bitten or stung by nonvenomous insect and other nonvenomous arthropods, initial encounter
CPT/HCPCS: 70450; 70496; 70498; 80053; 81001; 82550; 83690; 83735; 84439; 84443; 85025; 87040; 87476; 93005; 96360; 99285; J7120; Q9967

== ENCOUNTER 2025-01-17 13:03 | Day surgery (SDC) | payer MEDICARE, SELFPAY ==
--- NOTE | 2025-01-14 10:14 | EXP.HP ---
History of Present Illness *Admission Date: 01/17/25 *History of present illness: Mr. Hatfield is a 69-year-old gentleman who is here for screening/surveillance colonoscopy. The patient did have a colonoscopy in February 2010 by Dontrell Rivas MD. His last colonoscopy was May 2022 and the patient had a moderate to poor preparation with a single polyp (descending colon tubular adenoma) removed. The patient's mother had colon cancer. The examination is deemed medically necessary for screening/surveillance colonoscopy. The patient has been seen, interviewed and examined prior to the procedure by both myself and the anesthesia provider. [facility] Disclaimer: The information contained in this section may have been updated after the patient was seen, as this information can be updated by other users. Medical History Hypothyroid Diabetes HLD (hyperlipidemia) Surgical History History of knee replacement Family History Other Colon cancer Family history of heart disease Social History (Updated 01/17/25 @ 13:22 by Hilaria Lopez RN) Smoking Status: Never smoker alcohol intake: never substance use type: denies use current occupational status: employed and retired Travel in the last 8 weeks?: None household members: spouse housing: house current occupation: [employer] current occupational exposures/hazards: No caffeine: Yes Have you lived/traveled outside US in past 30 days?: No Contact w/someone who lives/traveled outside US past 30 days?: No Exposure to someone with infectious disease in past 14 days?: No Do you have a fever (greater than 100.4 F or 38 C)?: No Have you tested positive for COVID-19?: No Exposed to someone with COVID-19 in past 14 days?: No Do you have a sore throat?: No Do you have a cough?: No Do you have any weakness?: No Are you experiencing any nausea/vomitting?: No Do you have any diarrhea?: No Are you experiencing any unusual bleeding?: No Do you have any muscle aches/pain?: No Do you have any abdominal pain?: No Are you experiencing loss of taste or smell?: No Other Medical History Have you received the Flu Vaccine for this season: Yes Have you received the Pneumonia Vaccine: Yes Review of Systems Review of Systems Review of systems (narrative): Negative *Cardiovascular Comments: Negative *Gastrointestinal Comments: Negative *Genitourinary Comments: Negative *Musculoskeletal Comments: Negative *Neurologic Comments: Negative Meds Home Medications and Allergies Home Medications ?Medication ?Instructions ?Recorded ?Confirmed ?Type metformin 500 mg tablet 500 mg PO DAILY Diabetes 08/21/17 01/17/25 History levothyroxine 137 mcg tablet 137 mcg PO DAILY thyroid 90 days 10/06/17 01/17/25 History ##90 rosuvastatin 40 mg tablet 40 mg PO DAILY Cholesterol 30 days 10/06/17 01/17/25 History ##30 sodium,potassium,mag sulfates 17.5 See Rx Instructions PO .COMPLEX 01/05/25 01/17/25 Rx gram-3.13 gram-1.6 gram oral soln #354 mL (Suprep Bowel Prep Kit) New Prescriptions to Start Prescriptions: Allergies Allergy/AdvReac Type Severity Reaction Status Date / Time Penicillins (PENICILLINS) Allergy Unknown Other Verified 01/17/25 13:33 Exam *Routine HEENT Exam Head: Present normocephalic Eye: Present EOMI and PERRL ENT: Present mucous membranes moist *Routine Neck Exam Neck: Present supple *Routine Respiratory Exam Respiratory: Present CTA bilaterally *Routine Cardiovascular Exam Cardiovascular: Present RRR *Routine Abdominal Exam Abdominal: Present soft and normoactive bowel sounds; Absent tenderness *Routine Rectal Exam Rectal:: deferred *Routine Genitalia Exam Genitalia:: deferred *Routine Extremities Exam Extremities: Absent cyanosis, clubbing or edema *Routine Skin Exam Skin: Present warm; Absent rash *Routine Neurological Exam Neurological: Present alert and oriented X3 Assessment and Plan *Assessment and plan (1) Personal history of adenomatous and serrated colon polyps: Status: Acute Category: Medical Code(s): Z86.0101 - Personal history of adenomatous and serrated colon polyps (2) Family history of colon cancer in mother: Status: Acute Category: Medical Code(s): Z80.0 - Family history of malignant neoplasm of digestive organs (3) Screening for colon cancer: Status: Acute Category: Medical Code(s): Z12.11 - Encounter for screening for malignant neoplasm of colon Plan A/P: 1. Personal history of adenomatous colon polyps and family history of colon cancer (mother) is the preprocedural diagnosis. The patient will be anesthetized/sedated using MAC sedation. The patient has been seen and examined. Cardiac and lung assessment prior to the examination is stable. Proceed with planned screening colonoscopy.
--- NOTE | 2025-01-17 06:56 | P.PCN_ITS ---
[facility] Procedure Note Date: 01/17/25 Time: 15:10 Procedure Note:: Colonoscopy Procedure Report: Colonoscopy with cold snare polypectomy Endoscopist: Anurag Lopez II, MD Referring physician: Rashid Howell MD Date of Procedure: January 17, 2025 Equipment: Olympus [id number] adult colonoscope Sedation: MAC sedation Indication: Mr. Hatfield is a 69-year-old gentleman who is here for screening/surveillance colonoscopy. The patient did have a colonoscopy in February 2010 by Dontrell Rivas MD. His last colonoscopy was in May 2022 and the patient had a moderate to poor preparation with a single polyp (descending colon tubular adenoma) removed. The patient's mother had colon cancer in her late 60s. The patient reports no abdominal pain, weight loss, change in his bowel habits or rectal bleeding. The examination is deemed medically necessary for screening/surveillance colonoscopy. Procedure: Prior to the procedure, a history and physical exam was performed, and patient's medications and allergies were reviewed. The risks, benefits and alternatives of the sedation and procedure were discussed with the patient. All questions were answered and informed consent was obtained. The patient was brought to the procedure room. Patient identification and proposed procedure were verified by the physician and the nurse. The patient was placed in a left lateral decubitus position and the scope was passed under direct vision. Throughout the procedure, the patient's blood pressure, pulse, and oxygen saturations were monitored continuously. The colonoscopy was accomplished without difficulty. The patient tolerated the procedure well. Findings: On digital rectal examination there was normal rectal tone. There were external hemorrhoidal tags. The prostate was 2+, smooth, soft, symmetric without nodules. The colonoscope was introduced through the anal canal to the rectum and advanced to the cecum. The ileocecal valve and appendiceal orifice were identified. The scope was advanced a short distance into the ileum which appeared grossly normal. The scope was then withdrawn into the colon. There was a diminutive 3 mm polyp in the transverse colon removed via cold snare polypectomy. The remaining cecum, ascending and transverse colon and mucosa were grossly normal. There were scattered diverticuli throughout the descending and sigmoid colon (LEFT colon). The rectum itself was normal. Upon retroflexion within the rectum there were grade 2 through 3 internal hemorrhoids. The preparation was excellent throughout with [place] Preparation Score of 9. The cecal time was 12 minutes. Impression: 1. Diminutive 3 mm transverse colon polyp 2. Left-sided diverticulosis 3. Grade 2 internal hemorrhoids with external hemorrhoidal tags Plan: I will follow-up the polyp histology and recommend repeat screening/surveillance colonoscopy again in 5 years based upon family history and adenomatous polyps. I would recommend psyllium bulking fiber supplementation on a long-term daily maintenance basis.
[2025-01-17 13:21] VITALS: BP 137/100; PULSE 79; RESP 16; TEMP 36.1; O2SAT 98; BMI 30.2
[2025-01-17] MEDS: LACTATED RINGERS 1000ML 1,000 ML 50 ML IV (13:38)
--- NOTE | 2025-01-17 14:11 | P.PNANES_ITS ---
[facility] Disclaimer: The information contained in this section may have been updated after the patient was seen, as this information can be updated by other users. Medical History Hypothyroid Diabetes HLD (hyperlipidemia) Surgical History History of knee replacement Family History Other Colon cancer Family history of heart disease Social History (Updated 01/17/25 @ 13:22 by Hilaria Lopez RN) Smoking Status: Never smoker alcohol intake: never substance use type: denies use current occupational status: employed and retired Travel in the last 8 weeks?: None household members: spouse housing: house current occupation: [employer] current occupational exposures/hazards: No caffeine: Yes Have you lived/traveled outside [place] in past 30 days?: No Contact w/someone who lives/traveled outside [place] past 30 days?: No Exposure to someone with infectious disease in past 14 days?: No Do you have a fever (greater than 100.4 F or 38 C)?: No Have you tested positive for COVID-19?: No Exposed to someone with COVID-19 in past 14 days?: No Do you have a sore throat?: No Do you have a cough?: No Do you have any weakness?: No Are you experiencing any nausea/vomitting?: No Do you have any diarrhea?: No Are you experiencing any unusual bleeding?: No Do you have any muscle aches/pain?: No Do you have any abdominal pain?: No Are you experiencing loss of taste or smell?: No [facility] Anesthesia Checklist Patient Identification Patient Identification: Arm Band and Family Structural Data Admitted From: Home Planned Operative Procedure/s: Colonoscopy Consent for Planned Operative Procedure(s) Verified: Yes Verified Documents: Surgical Consent and History and Physical NPO Status Verified Time NPO: 00:00 Additional verifications Patient : No Anesthesia Reactions: No Hx Blood Transfusions: No Blood Transfusion Reaction: No Cephalosporin Allergy: No Previous Colonoscopy: Yes Airway Assessment Mallampati Score:: Class II C-Spine Mobility Assessed: Yes TMJ Mobility Assessed: Yes Dentition: Good Dentition Neurological Assessment Level of Consciousness: Awake, Alert, Appropriate and Follows Commands Hx Seizures: No Numbness or tingling in extremities: No Anesthesia Plan Anesthesia Risk discussed: Yes ASA Class: II Anesthesia Type: MAC
[2025-01-17 15:13] VITALS: BP 100/67; PULSE 67; RESP 18; TEMP 36.2; O2SAT 94
[2025-01-17 15:23] VITALS: BP 100/64; PULSE 62; O2SAT 92
[2025-01-17 15:33] VITALS: BP 110/70; PULSE 62; O2SAT 95
[2025-01-17 15:43] VITALS: BP 102/73; PULSE 85; O2SAT 96
== END 2025-01-17 15:43 | disposition home or self-care (01) ==
PROVIDERS: PCP Family Medicine; Visit Provider Internal Medicine Gastroenterology
PROC: 0DJD8ZZ Inspection of Lower Intestinal Tract, Via Natural or Artificial Opening Endoscopic (ICD-10-PCS; CPT 45378; principal; 2025-01-17 14:30)
DX: Z12.11 Encounter for screening for malignant neoplasm of colon (principal); K63.5 Polyp of colon; K57.30 Diverticulosis of large intestine without perforation or abscess without bleeding; K64.1 Second degree hemorrhoids; K64.4 Residual hemorrhoidal skin tags; Z86.0101 Personal history of adenomatous and serrated colon polyps; Z80.0 Family history of malignant neoplasm of digestive organs; E03.9 Hypothyroidism, unspecified; E11.9 Type 2 diabetes mellitus without complications; E78.5 Hyperlipidemia, unspecified; Z79.84 Long term (current) use of oral hypoglycemic drugs; Z79.890 Hormone replacement therapy; Z79.899 Other long term (current) drug therapy; Z88.0 Allergy status to penicillin
CPT/HCPCS: 45385; J2003; J2704; J7120